=== PATIENT | male | born 1960 | race Hispanic/Latino ===

== ENCOUNTER 2019-01-05 04:54 | Emergency (ER) | payer OTHER ==
[2019-01-05] MEDS ORDERED: ACETAMINOPHEN 500 MG TAB ONE (05:57)
[2019-01-05] MEDS ORDERED: NA CHLORIDE 0.9% 1,000 ML ONE (06:06)
[2019-01-05] MEDS ORDERED: ALBUTEROL 2.5 MG/3 ML NEB SOL ONE (06:06)
[2019-01-05 06:38] LABS: Absolute Monocytes 0.6 K/uL (0.1-1.3); Absolute Neutrophil 4.1 K/uL (1.8-8.0); Basophils % 0.5 % (0-1.3); Eosinophils % 0.4 % (0-4.4); Hematocrit 47.8 % (39.6-49.0); Lymphocytes % 38.2 % (15.3-44.8); MPV 10.4 fL (7.6-11.3); Monocytes % 8.2 % (3.3-12.3); RBC Red Blood Cell Count 5.29 M/uL (4.33-5.43)
[2019-01-05 06:40] LABS: ALT/SGPT 37 U/L (12-78); AST/SGOT 26 U/L (15-37); Albumin 3.7 g/dL (3.4-5.0); Alkaline Phosphatase 119 U/L (45-117); BUN Blood Urea Nitrogen 8 mg/dL (7-18); Bicarbonate 30 mmol/L (21-32); Bilirubin Direct 0.2 mg/dL (0-0.2); Bilirubin Total 0.5 mg/dL (0.2-1.0); Glucose Level 129 mg/dL (74-106); Potassium 3.7 mmol/L (3.5-5.1); Protein, Total 7.4 g/dL (6.4-8.2); Sodium Level 141 mmol/L (136-145)
--- NOTE | 2019-01-05 07:03 | EDPHYS ---
Physician Documentation [facility] Name: Moe Rivero Age: 58 yrs Sex: Male : 1960 Arrival Date: 01/05/2019 Time: 04:59 Bed 8 Private MD: Kaya David K ED Physician Steve Bragg HPI: 01/05 05:55 This 58 yrs old Male presents to ER via Ambulatory with complaints of Cough, wa Congestion, Sore Throat, Decreased Appetite. 05:55 The patient or guardian reports cough, that is constant, difficulty breathing, flu wa symptoms, arthralgias, low-grade fever, myalgias, fever. Onset: The symptoms/episode began/occurred 5 day(s) ago. Severity of symptoms: At their worst the symptoms were moderate, in the emergency department the symptoms are actually worse. Modifying factors: The symptoms are alleviated by nothing, the symptoms are aggravated by nothing. Associated signs and symptoms: Pertinent positives: fever, nausea, rhinorrhea, sore throat, Pertinent negatives: chest pain, diarrhea, ear ache, nausea. The patient has not experienced similar symptoms in the past. saw PMD for same. on abx since 12/20/18. fever just began a couple days ago even while on abx. Historical: - Allergies: 05:17 No Known Allergies; lp1 - Home Meds: 05:17 atorvastatin 20 mg oral tab 1 tab once daily [Active]; carvedilol 12.5 mg oral tab 1 lp1 tab 2 times per day [Active]; tamsulosin 0.4 mg oral cp24 1 cap once daily [Active]; metformin 1,000 mg Oral tr24 1 tab once daily [Active]; Cefuroxime Oral 500 mg twice a day [Active]; - PMHx: 05:17 Hyperlipidemia; Hypertension; Diabetes - NIDDM; lp1 - PSHx: 05:17 Bariatric surgery; Uro-lift; lp1 - Immunization history:: Adult Immunizations up to date, Flu vaccine is not up to date. - Social history:: Smoking status: Patient/guardian denies using tobacco. - Ebola Screening: : No symptoms or risks identified at this time. - Family history:: not pertinent. - Hospitalizations: : No recent hospitalization is reported. ROS: 05:57 Eyes: Negative for injury, pain, redness, and discharge, Neck: Negative for injury, wa pain, and swelling, Abdomen/GI: Negative for abdominal pain, nausea, vomiting, diarrhea, and constipation, Back: Negative for injury and pain, : Negative for injury, bleeding, discharge, and swelling, MS/Extremity: Negative for injury and deformity, Skin: Negative for injury, rash, and discoloration, Neuro: Negative for headache, weakness, numbness, tingling, and seizure, Psych: Negative for depression, anxiety, suicide ideation, homicidal ideation, and hallucinations. 05:57 Constitutional: Positive for body aches, chills, fatigue, fever, malaise, Negative for weight loss. 05:57 ENT: Positive for rhinorrhea, sore throat, Negative for ear pain. 05:57 Respiratory: Positive for cough, with no reported sputum, Negative for sputum production, wheezing. 05:57 All other systems are negative. Exam: 05:58 Head/Face: Normocephalic, atraumatic. Eyes: Pupils equal round and reactive to light, wa extra-ocular motions intact. Lids and lashes normal. Conjunctiva and sclera are non-icteric and not injected. Cornea within normal limits. Periorbital areas with no swelling, redness, or edema. Neck: Trachea midline, no thyromegaly or masses palpated, and no cervical lymphadenopathy. Supple, full range of motion without nuchal rigidity, or vertebral point tenderness. No Meningismus. Chest/axilla: Normal chest wall appearance and motion. Nontender with no deformity. No lesions are appreciated. Cardiovascular: Regular rate and rhythm with a normal S1 and S2. No gallops, murmurs, or rubs. Normal PMI, no JVD. No pulse deficits. Abdomen/GI: Soft, non-tender, with normal bowel sounds. No distension or tympany. No guarding or rebound. No evidence of tenderness throughout. Back: No spinal tenderness. No costovertebral tenderness. Full range of motion. Skin: Warm, dry with normal turgor. Normal color with no rashes, no lesions, and no evidence of cellulitis. MS/ Extremity: Pulses equal, no cyanosis. Neurovascular intact. Full, normal range of motion. Neuro: Awake and alert, GCS 15, oriented to person, place, time, and situation. Cranial nerves II-XII grossly intact. Motor strength 5/5 in all extremities. Sensory grossly intact. Cerebellar exam normal. Normal gait. Psych: Awake, alert, with orientation to person, place and time. Behavior, mood, and affect are within normal limits. 05:58 Constitutional: The patient appears in no acute distress, alert, febrile. 05:58 ENT: External ear(s): are unremarkable, TM's: are normal, no evidence of bulging, Posterior pharynx: erythema. 05:58 Cardiovascular: Rate: normal, Rhythm: regular, Pulses: no pulse deficits are appreciated, Heart sounds: normal, Edema: is not appreciated. 05:58 Respiratory: the patient does not display signs of respiratory distress, Respirations: normal, Breath sounds: are clear throughout, Respiratory rate: normal Vital Signs: 05:14 BP 165 / 102; Pulse 88; Resp 18; Temp 101.4(O); Pulse Ox 95% on R/A; Weight 93.89 kg; lp1 Height 5 ft. 9 in. (175.26 cm); Pain 0/10; 06:23 BP 156 / 101; Pulse 87; Resp 18; Pulse Ox 100% on Nebulizer Mask; lp1 07:09 BP 143 / 92; Pulse 93; Resp 16; Pulse Ox 96% ; sv 07:19 Temp 100; sv 05:14 Body Mass Index 30.57 (93.89 kg, 175.26 cm) lp1 MDM: 05:27 Patient medically screened. wa 05:59 Differential Diagnosis: Influenza Viral Syndrome Pneumonia. ms 07:00 Data reviewed: vital signs, nurses notes, lab test result(s), radiologic studies. Test wa interpretation: by ED physician or midlevel provider: flu A positive. cbc and cmp wnl. CXR: no acute process. Response to treatment: the patient's symptoms have markedly improved after treatment. ED course: received fluid hydration. will begin tamiflu. pt with potential immune compromise due to underlying comorbidities. 01/05 05:13 Order name: Flu; Complete Time: 06:30 [facility] 01/05 05:48 Order name: CBC with Diff; Complete Time: 06:59 ms 01/05 05:48 Order name: Basic Metabolic Panel; Complete Time: 06:59 ms 01/05 05:48 Order name: Lactate; Complete Time: 06:59 ms 01/05 05:48 Order name: LFT's; Complete Time: 06:59 ms 01/05 05:48 Order name: Urine Microscopic Only; Complete Time: 07:10 ms 01/05 05:48 Order name: Cardiac monitoring; Complete Time: 06: ms 01/05 05:48 Order name: Labs collected and sent; Complete Time: 06:23 ms 01/05 05:48 Order name: Chest Pa And Lat (2 Views) XRAY ms 01/05 06:26 Order name: Urine Dipstick--Ancillary (enter results); Complete Time: 07:10 01/05 05:48 Order name: O2 Sat Monitoring; Complete Time: 06:23 ms 01/05 05:48 Order name: Urine Dipstick-Ancillary (obtain specimen); Complete Time: 06: ms 01/05 05:48 Order name: IV; Complete Time: 06: ms Administered Medications: 05:49 Drug: Acetaminophen 1000 mg Route: PO; lp1 07:19 Follow up: Temp 100; Response: No adverse reaction; Temperature is decreased sv 06:22 Drug: Albuterol 2.5 mg Route: Inhalation; lp1 06:22 Drug: NS 0.9% 1000 ml Route: IV; Rate: 1 bolus; Site: right antecubital; lp1 07:19 Follow up: Response: No adverse reaction; IV Status: Completed infusion; IV Intake: sv 1000ml 07:08 Not Given (Patient Refused): Zofran 4 mg IVP once; over 2 minutes sv Point of Care Testing: Blood Glucose: 06:14 Blood Glucose: 136 mg/dL; lp1 Ranges: Critical Glucose Levels:Adult <50 mg/dl or >400 mg/dl <40 mg/dl or >180 mg/dl Disposition: 01/05/19 07:03 Discharged to Home. Impression: Acute Viral Syndrome secondary to Influenza A infection. - Condition is Stable. - Discharge Instructions: Influenza, Adult, [id number]. - Prescriptions for Zofran 4 mg Oral Tablet - take 1 tablet by ORAL route every 12 hours As needed; 20 tablet. Tamiflu 75 mg Oral Capsule - take 1 tablet by ORAL route every 12 hours for 5 days; 10 tablet. - Medication Reconciliation Form, Thank You Letter, Antibiotic Education, Prescription Opioid Use form. - Follow up: Private Physician; When: 1 - 2 days; Reason: Recheck today's complaints. - Problem is new. - Symptoms have improved. - Notes: drink plenty of fluids. take tamiflu as prescribed. see your doctor within 48 hours for recheck of your symptoms Signatures: Dispatcher [employer] Angella Valiente, MARION RN sv Claudette Hernandez RN RN lp1 Steve Bragg MD MD wa Corrections: (The following items were deleted from the chart) 07:20 07:03 01/05/2019 07:03 Discharged to Home. Impression: Acute Viral Syndrome secondary sv to Influenza A infection. Condition is Stable. Forms are Medication Reconciliation Form, Thank You Letter, Antibiotic Education, Prescription Opioid Use. Follow up: Private Physician; When: 1 - 2 days; Reason: Recheck today's complaints. Problem is new. Symptoms have improved. wa
--- NOTE | 2019-01-05 07:03 | ER ---
Nurse's Notes [facility] Name: Moe Rivero Age: 58 yrs Sex: Male : 1960 Arrival Date: 01/05/2019 Time: 04:59 Bed 8 Private MD: Kaya David K Diagnosis: Acute Viral Syndrome secondary to Influenza A infection Presentation: 01/05 05:13 Presenting complaint: Patient states: Cough, congestion, sore throat since 12/20/18; lp1 Seen by PCP and prescribed antibiotic with no relief;. Transition of care: patient was not received from another setting of care. Onset of symptoms was January 05, 2019. Risk Assessment: Do you want to hurt yourself or someone else? Patient reports no desire to harm self or others. Initial Sepsis Screen: Does the patient meet any 2 criteria? No. Patient's initial sepsis screen is negative. Does the patient have a suspected source of infection? No. Patient's initial sepsis screen is negative. Care prior to arrival: None. 05:13 Method Of Arrival: Ambulatory lp1 05:13 Acuity: SUZANNE 4 lp1 Historical: - Allergies: 05:17 No Known Allergies; lp1 - Home Meds: 05:17 atorvastatin 20 mg oral tab 1 tab once daily [Active]; carvedilol 12.5 mg oral tab 1 lp1 tab 2 times per day [Active]; tamsulosin 0.4 mg oral cp24 1 cap once daily [Active]; metformin 1,000 mg Oral tr24 1 tab once daily [Active]; Cefuroxime Oral 500 mg twice a day [Active]; - PMHx: 05:17 Hyperlipidemia; Hypertension; Diabetes - NIDDM; lp1 - PSHx: 05:17 Bariatric surgery; Uro-lift; lp1 - Immunization history:: Adult Immunizations up to date, Flu vaccine is not up to date. - Social history:: Smoking status: Patient/guardian denies using tobacco. - Ebola Screening: : No symptoms or risks identified at this time. - Family history:: not pertinent. - Hospitalizations: : No recent hospitalization is reported. Screenin:18 Abuse screen: Denies threats or abuse. Denies injuries from another. Nutritional lp1 screening: No deficits noted. Tuberculosis screening: No symptoms or risk factors identified. Fall Risk None identified. Assessment: 05:18 General: Appears uncomfortable, Behavior is appropriate for age. Pain: Denies pain. lp1 Neuro: Level of Consciousness is awake, alert, obeys commands, Oriented to person, place, time, situation. Cardiovascular: Patient's skin is warm and dry. Respiratory: Reports cough that is Respiratory effort is even, unlabored, Respiratory pattern is regular, Breath sounds are clear bilaterally. GI: No signs and/or symptoms were reported involving the gastrointestinal system. : No signs and/or symptoms were reported regarding the genitourinary system. EENT: Reports nasal congestion pain when swallowing. Derm: Skin is pink, warm \T\ dry. Musculoskeletal: No signs and/or symptoms reported regarding the musculoskeletal system. 07:18 Reassessment: Patient appears in no apparent distress at this time. Patient and/or sv family updated on plan of care and expected duration. Pain level reassessed. Patient is alert, oriented x 3, equal unlabored respirations, skin warm/dry/pink. Vital Signs: 05:14 BP 165 / 102; Pulse 88; Resp 18; Temp 101.4(O); Pulse Ox 95% on R/A; Weight 93.89 kg; lp1 Height 5 ft. 9 in. (175.26 cm); Pain 0/10; 06:23 BP 156 / 101; Pulse 87; Resp 18; Pulse Ox 100% on Nebulizer Mask; lp1 07:09 BP 143 / 92; Pulse 93; Resp 16; Pulse Ox 96% ; sv 07:19 Temp 100; sv 05:14 Body Mass Index 30.57 (93.89 kg, 175.26 cm) lp1 ED Course: 04:59 Patient arrived in ED. es 05:00 Kaya David MD is Private Physician. es 05:02 Claudette Hernandez, MARION is Primary Nurse. lp1 05:14 Triage completed. lp1 05:15 Arm band placed on left wrist. lp1 05:18 Patient has correct armband on for positive identification. lp1 05:27 Steve Bragg MD is Attending Physician. wa 05:59 X-ray completed. Patient tolerated procedure well. sg4 06:07 Chest Pa And Lat (2 Views) XRAY In Process Unspecified. EDMS 06:16 Inserted saline lock: 20 gauge in right antecubital area, using aseptic technique. oe Blood collected. 07:18 No provider procedures requiring assistance completed. IV discontinued, intact, sv bleeding controlled, No redness/swelling at site. Pressure dressing applied. Administered Medications: 05:49 Drug: Acetaminophen 1000 mg Route: PO; lp1 07:19 Follow up: Temp 100; Response: No adverse reaction; Temperature is decreased sv 06:22 Drug: Albuterol 2.5 mg Route: Inhalation; lp1 06:22 Drug: NS 0.9% 1000 ml Route: IV; Rate: 1 bolus; Site: right antecubital; lp1 07:19 Follow up: Response: No adverse reaction; IV Status: Completed infusion; IV Intake: sv 1000ml 07:08 Not Given (Patient Refused): Zofran 4 mg IVP once; over 2 minutes sv Point of Care Testing: Blood Glucose: 06:14 Blood Glucose: 136 mg/dL; lp1 Ranges: Intake: 07:19 IV: 1000ml; Total: 1000ml. sv Outcome: 07:03 Discharge ordered by . wa 07:19 Discharged to home ambulatory, with family. sv 07:19 Condition: stable 07:19 Discharge instructions given to patient, family, Instructed on discharge instructions, follow up and referral plans. medication usage, increase fluids Demonstrated understanding of instructions, follow-up care, medications, Prescriptions given X 2. 07:20 Patient left the ED. sv Signatures: Dispatcher [employer] Angella Valiente, RN Reyna Zuleta Laura RN RN lp1 Hernando Gifford William, MD MD wa Garcia, Susana sg4
[2019-01-05 07:05] LABS: Urine Bacteria <20 /HPF (NONE SEEN); Urine Culture Reflex Order NOT NEEDED; Urine Mucus 1+ /HPF (NONE SEEN)
[2019-01-05 07:08] LABS: Urine Blood TRACE (NEG); Urine Glucose NEGATIVE (NEG); Urine Protein 1+ (NEG); Urine Specific Gravity 1.025 (1.005-1.030)
--- NOTE | 2019-01-05 10:27 | RAD REPORT ---
EXAM DESCRIPTION: Hero Lester (2 Views)01/05/2019 6:01 am CLINICAL HISTORY: Cough COMPARISON: 2015 FINDINGS: The lungs appear clear of acute infiltrate. The heart is normal size The aorta is tortuous/ectatic IMPRESSION: No acute abnormalities displayed
== END 2019-01-05 07:20 | disposition home or self-care (01) ==
LOC: ER 04:54
DX: B34.9 Viral infection, unspecified (principal); J10.1 Influenza due to other identified influenza virus with other respiratory manifestations; E11.9 Type 2 diabetes mellitus without complications; E78.5 Hyperlipidemia, unspecified; I10 Essential (primary) hypertension; Z79.84 Long term (current) use of oral hypoglycemic drugs; Z79.899 Other long term (current) drug therapy
CPT/HCPCS: 36415; 71046; 80048; 80076; 81003; 81015; 82962; 83605; 85025; 87804; 96360; 99284; J7030

== ENCOUNTER 2020-12-01 09:07 | Emergency (ER) | payer OTHER ==
--- OUTSIDE RECORDS SUMMARY | 2020-12-01 09:11 | XMS REPORT | Continuity of Care Document ---
:1960 Author Organization [facility] t Address [address] [place] [address] Care Team Providers Name Role Phone Unavailable Unavailable Unavailable Problems This patient has no known problems. Allergies, Adverse Reactions, Alerts This patient has no known allergies or adverse reactions. Medications This patient has no known medications. Procedures This patient has no known procedures. Encounters Start End Encounter Admission Attending Care Care Encounter Source Date/Time Date/Time Type Type Clinicians Facility Department ID 2020-09-10 2020-09-[address] [facility] [id number] [address] 00:00:00 00:00:00 Enoch Steiner ent Clinics Results This patient has no known results.
--- OUTSIDE RECORDS SUMMARY | 2020-12-01 09:11 | XMS REPORT ---
:1960 Author Organization [facility] Address [address] [facility] [address] [place] [address] Care Team Providers Name Role Phone Alyse Martinez Unavailable [phone] PROBLEMS Type Condition ICD9-CM [id number] Onset Condition SNOMED Code Notes Code Code Dates Status Problem Kidney stones N20.0 Active 39711503 Problem BPH (benign N40.0 Active [id number] prostatic hyperplasia) Problem Lower urinary N40.1 Active [id number] tract symptoms due to benign prostatic hyperplasia ALLERGIES No Known Allergies ENCOUNTERS from 1960 to 2020-09-13 Encounter Location Date Provider Diagnosis [place] [address] [facility] 15 Aug, 2020 Alyse Martinez [facility] Specialty/Urology [address] [place] [address], with [facility] doctor, [place] [address] encounter for Z71.89 ; Kidney stones N20.0 ; BPH (benign prostatic hyperplasia) N4 0.0 and Lower urina ry tract symptoms due to benign prostati c hyperplasia N40 .1 IMMUNIZATIONS No Information SOCIAL HISTORY Tobacco Use: Social History Observation Description Date Details (start date - stop date) Former Smoker Sex Assigned At : Social History Observation Description Sex Assigned At Unknown Tobacco Use/Smoking Question Answer Notes Are you a former smoker REASON FOR REFERRAL No Information VITAL SIGNS Height 69 in Aug, Weight 226.4 lbs Aug, Temperature 98.2 degrees Fahrenheit Aug, BMI 33.43 kg/m2 Aug, Oximetry 95 % Aug, Blood pressure systolic 158 mm Hg Aug, Blood pressure diastolic 92 mm Hg Aug, MEDICATIONS Medication SIG (Take, Route, Frequency, Start Date End Date Status Duration) Carvedilol 12.5 mg AM, 6.25 mg with food Orally as directed Active PM Vitamin D 50 MCG (1999) 1 tablet Orally Once a day Active Tamsulosin HCl 0.4 MG 1 capsule Orally Once a day Active Lisinopril 10 MG 1 tablet Orally Once a day Active Atorvastatin Calcium 20 MG 1 tablet Orally Once a day Active Lisinopril 40 MG 1 tablet Orally Once a day Active Metformin HCl 1000 MG 1 tablet with a meal Orally Active Once a day Biotin 10 MG 1 tablet Orally Once a day A ctive PROCEDURES No Information RESULTS No Results REASON FOR VISIT Stones, BPH Goals Section No Information Health Concerns No Information MEDICAL EQUIPMENT No Information MENTAL STATUS No Information FUNCTIONAL STATUS No Information ASSESSMENTS Encounter Date Diagnosis Notes Aug, Kidney stones (ICD-10 - N20.0) Aug, Establishing care with new doctorgurwinder for (ICD-10 - Z71.89) Aug, Lower urinary tract symptoms due to gustavo gn prostatic hyperplasia (ICD-10 - N40.1) Aug, BPH (benign prostatic hyperplasia) (ICD- 10 - N40.0) PLAN OF TREATMENT Treatment Notes Assessment Notes Clinical Notes Lower urinary tract symptoms due to Cont inue daily flomaxPSA f/tKUB, check benign prostatic hyperplasia stone statu s, no c/o flank painUrine reflexROV 6 mo., FR/ PVR Treatment Notes Test Name Order Date URINALYSIS AUTO W/O SCOPE ([id number]) 2020-09-13 UMIC with Reflex to Urine Culture 2020-09-13 PVR 2020-09-13 PSA Total (Reflex To Free) 2020-09-13 Abdomen 1 View (KUB) 2020-09-13 Next Appt Details 6 Months Reason:FR/PVR Provider Name:Alyse Martinez, 09:00:00 AM, [address] [place] [address], [place], [address], Follow Up:6 MonthsFR/PVR Insurance Providers Payer Name Payer Payer Insured Name Patient Coverage Covera ge End Address Phone Relationship to Start Date [place] e Insured [employer] [phone] Maverick Rivero self [id number] [birth year] ago [facility] [id number]
[2020-12-01] MEDS ORDERED: LIDOCAINE 1% W/EPI 1:100,000 MDV 50 ML VIAL ONE (09:40)
[2020-12-01 09:46] LABS: Absolute Lymphocytes (CBC) 5.9 K/uL (0.7-4.9); Basophils % 0.4 % (0-1.3); Hematocrit 42.1 % (39.6-49.0); MPV 9.5 fL (7.6-11.3); RBC Red Blood Cell Count 4.61 M/uL (4.33-5.43)
[2020-12-01] MEDS ORDERED: CLINDAMYCIN 900MG/D5W 900 MG/50 ML IVPB IV ONE (09:49)
[2020-12-01 09:56] LABS: BUN Blood Urea Nitrogen 17 mg/dL (7-18); Bicarbonate 30 mmol/L (21-32); Glucose Level 142 mg/dL (74-106); Potassium 3.6 mmol/L (3.5-5.1); Sodium Level 141 mmol/L (136-145)
[2020-12-01 10:02] LABS: Blood Morphology Comment NOT SEEN (NOT SEEN); Platelet Estimate ADEQ; White Blood Cell Scan OK (OK)
--- NOTE | 2020-12-01 10:07 | EDPHYS ---
Physician Documentation [facility] Name: Moe Rivero Age: 60 yrs Sex: Male : 1960 Arrival Date: 12/01/2020 Time: 09:09 Bed 4 Private MD: ED Physician Richie Dorado HPI: 12/01 09:26 This 60 yrs old Male presents to ER via Ambulatory with complaints of Facial cp Swelling. 09:26 the patient presents with a swollen area of the forehead. cp 09:26 Description: swollen. Onset: The symptoms/episode began/occurred 2 day(s) ago. cp Associated signs and symptoms: Pertinent negatives: discharge, drainage, fever. Historical: - Allergies: 09:15 No Known Drug Allergies; tw2 - Home Meds: 09:15 atorvastatin 20 mg Oral tab 1 tab once daily [Active]; carvedilol 12.5 mg Oral tab 1 tw2 tab 2 times per day [Active]; metformin 1,000 mg Oral tr24 1 tab once daily [Active]; tamsulosin 0.4 mg Oral cp24 1 cap once daily [Active]; - PMHx: 09:15 Hypertension; Hyperlipidemia; Diabetes - NIDDM; tw2 - PSHx: 09:15 Bariatric surgery; Uro-lift; tw2 - Immunization history:: Adult Immunizations unknown, Last tetanus immunization: unknown. - Social history:: Smoking status: Patient/guardian denies using alcohol, street drugs. ROS: 09:30 Skin: Positive for swelling, of the forehead. cp 09:30 Constitutional: Negative for body aches, chills, fever, poor PO intake. cp 09:30 All other systems are negative. Exam: 09:35 Constitutional: The patient appears in no acute distress, alert, awake, non-toxic, well cp developed, well nourished. 09:35 Head/face: Noted is erythema, that is mild, of the forehead, swelling, that is mild, of the foreheadextending supraorbital bilaterally, tenderness, that is mild. 09:35 Eyes: Extraocular movements: intact throughout. 09:35 Chest/axilla: Inspection: normal. 09:35 Cardiovascular: Rate: normal, Rhythm: regular. 09:35 Respiratory: the patient does not display signs of respiratory distress, Respirations: normal, no use of accessory muscles, no retractions, labored breathing, is not present. Vital Signs: 09:12 BP 156 / 97; Pulse 61; Resp 18; Temp 97.6(TE); Pulse Ox 98% on R/A; Weight 99.79 kg tw2 (R); Height 5 ft. 8 in. (172.72 cm); Pain 5/10; 09:43 BP 145 / 91; Pulse 60; Resp 17; Pulse Ox 98% ; jl7 09:12 Body Mass Index 33.45 (99.79 kg, 172.72 cm) tw2 Procedures: 09:40 I \T\ D: Incision and drainage was performed for an abscess of the forehead Prepped with cp Betadine, Anesthetized with 2 ml's 1% Lidocaine w/ Epi. Incised with #11 blade. Drained small amount purulent fluid. Dressing: sterile 4x4 gauze, the patient tolerated the procedure well. MDM: 09:19 Patient medically screened. cp 10:07 Data reviewed: vital signs, nurses notes, lab test result(s), and as a result, I will cp discharge patient. 10:07 Differential diagnosis: abscess, allergic reaction, cellulitis. Counseling: I had a cp detailed discussion with the patient and/or guardian regarding: the historical points, exam findings, and any diagnostic results supporting the discharge/admit diagnosis, lab results, to return to the emergency department if symptoms worsen or persist or if there are any questions or concerns that arise at home. Response to treatment: the patient's symptoms have mildly improved after treatment, and as a result, I will discharge patient. 12/01 09:25 Order name: CBC with Diff 12/01 09:25 Order name: BMP 12/01 09:25 Order name: Wound Culture 12/01 09:25 Order name: CBC with Automated Diff; Complete Time: 10:04 EDMS 12/01 10:05 Interpretation: Normal except: WBC 12.8; LYM% 46.0; LYMA 5.9. 12/01 09:25 Order name: Basic Metabolic Panel; Complete Time: 10:04 EDMS 12/01 10:06 Interpretation: Normal except: CL 108; GLUC 142; CA 8.4. 12/01 09:25 Order name: IV; Complete Time: 09:38 cp 12/01 09:25 Order name: I\T\D Setup; Complete Time: 09:32 12/01 10:02 Order name: CBC Smear Scan; Complete Time: 10:04 EDMS Administered Medications: 09:30 Drug: Lidocaine-Epinephrine -1%: (1:100,000) 5 ml {Note: administered by марина Morejon.} Volume: 20 ml; Route: Infiltration; 09:38 Drug: Clindamycin 900 mg Route: IVPB; Infused Over: 30 mins; Site: left hand; jd3 Disposition: 10:20 Chart complete. 12/02 06:52 Co-signature as Attending Physician, Richie Dorado MD I agree with the assessment and [facility] of care. Disposition: 12/01/20 10:07 Discharged to Home. Impression: Cellulitis of face, Cutaneous abscess of face. - Condition is Stable. - Discharge Instructions: Skin Abscess, Cellulitis, Adult, Incision and Drainage. - Prescriptions for Clindamycin HCl 300 mg Oral Capsule - take 1 capsule by ORAL route every 6 hours for 10 days; 40 capsule. Bactrim DS 800- 160 mg Oral Tablet - take 1 tablet by ORAL route every 12 hours for 10 days; 20 tablet. - Medication Reconciliation Form, Thank You Letter, Antibiotic Education, Prescription Opioid Use form. - Follow up: Private Physician; When: 1 - 2 days; Reason: Recheck today's complaints. - Problem is new. - Symptoms have improved. Signatures: Dispatcher [employer] [facility] Richie Dorado MD MD cha Page, Corey, PA PA Tara Polo RN RN tw2 Missy Chang RN RN jl7 Norris Anderson RN RN jd3 Corrections: (The following items were deleted from the chart) 12/01 09:53 09:25 Wound Culture ordered. EDSD EDMS 10:05 10:04 Normal except: WBC 12.8; LYM% 46.0. cp cp 10:06 10:05 Normal except: CL 108; GLUC 142. cp cp 10:14 10:07 12/01/2020 10:07 Discharged to Home. Impression: Cellulitis of face; Cutaneous jl7 abscess of face. Condition is Stable. Forms are Medication Reconciliation Form, Thank You Letter, Antibiotic Education, Prescription Opioid Use. Follow up: Private Physician; When: 1 - 2 days; Reason: Recheck today's complaints. Problem is new. Symptoms have improved. cp
--- NOTE | 2020-12-01 10:07 | ER ---
Nurse's Notes [facility] Name: Moe Rivero Age: 60 yrs Sex: Male : 1960 Arrival Date: 12/01/2020 Time: 09:09 Bed 4 Private MD: Diagnosis: Cellulitis of face;Cutaneous abscess of face Presentation: 12/01 09:12 Chief complaint: Patient states: i have like a boil on my forehead and for a couple of tw2 days i have been feeling pressure. this morning i woke up and my face is swollen and feel like my eyes are swollen shut. Coronavirus screen: At this time, the client does not indicate any symptoms associated with coronavirus-19. Ebola Screen: Patient denies travel to an Ebola-affected area in the 21 days before illness onset. Initial Sepsis Screen: Does the patient meet any 2 criteria? No. Patient's initial sepsis screen is negative. Does the patient have a suspected source of infection? No. Patient's initial sepsis screen is negative. Risk Assessment: Do you want to hurt yourself or someone else? Patient reports no desire to harm self or others. Onset of symptoms was December 01, 2020. 09:12 Method Of Arrival: Ambulatory tw2 09:12 Acuity: SUZANNE 3 tw2 Triage Assessment: 09:15 General: Appears in no apparent distress. well groomed, Behavior is calm, cooperative, tw2 appropriate for age. Pain: Complains of pain in forehead. Derm: swelling noted to forehead and b/l eye area Abscess located on forehead is dime sized, is red, is raised. Historical: - Allergies: :15 No Known Drug Allergies; tw2 - Home Meds: 09:15 atorvastatin 20 mg Oral tab 1 tab once daily [Active]; carvedilol 12.5 mg Oral tab 1 tw2 tab 2 times per day [Active]; metformin 1,000 mg Oral tr24 1 tab once daily [Active]; tamsulosin 0.4 mg Oral cp24 1 cap once daily [Active]; - PMHx: 09:15 Hypertension; Hyperlipidemia; Diabetes - NIDDM; tw2 - PSHx: 09:15 Bariatric surgery; Uro-lift; tw2 - Immunization history:: Adult Immunizations unknown, Last tetanus immunization: unknown. - Social history:: Smoking status: Patient/guardian denies using alcohol, street drugs. Screenin:20 Abuse screen: Denies threats or abuse. Denies injuries from another. Nutritional jl7 screening: No deficits noted. Tuberculosis screening: No symptoms or risk factors identified. Fall Risk IV access (20 points). Assessment: 09:20 General: Appears in no apparent distress. uncomfortable, Behavior is calm, cooperative, jl7 appropriate for age. Pain: Complains of pain in forehead Pain currently is 5 out of 10 on a pain scale. Neuro: Level of Consciousness is awake, alert, obeys commands, Oriented to person, place, time, situation. Cardiovascular: Patient's skin is warm and dry. Respiratory: Airway is patent Respiratory effort is even, unlabored, Respiratory pattern is regular, symmetrical. Derm: Skin is pink, warm \T\ dry. mild swelling noted to forehead around abscess, to medial aspect of bilateral eyes, and to bridge of nose Abscess located on forehead is quarter sized, has no drainage, is red, is raised. Vital Signs: 09:12 BP 156 / 97; Pulse 61; Resp 18; Temp 97.6(TE); Pulse Ox 98% on R/A; Weight 99.79 kg tw2 (R); Height 5 ft. 8 in. (172.72 cm); Pain 5/10; 09:43 BP 145 / 91; Pulse 60; Resp 17; Pulse Ox 98% ; jl7 09:12 Body Mass Index 33.45 (99.79 kg, 172.72 cm) tw2 ED Course: 09:09 Patient arrived in ED. ag3 09:14 Triage completed. tw2 09:16 Arm band placed on. tw2 09:17 Richie Dugan PA is PHCP. cp 09:17 Richie Dorado MD is Attending Physician. cp 09:17 Missy Chang RN is Primary Nurse. jl7 09:20 Patient has correct armband on for positive identification. Bed in low position. Call jl7 light in reach. Side rails up X 1. Pulse ox on. NIBP on. 09:35 Initial lab(s) drawn, by me, sent to lab. Inserted saline lock: 20 gauge in left hand, jl7 using aseptic technique. Blood collected. 10:12 Assist provider with I \T\ D: of an abscess on forehead Set up I\T\D tray. Performed by jenifer WATSON Dressing with Neosporin and bandaid Patient tolerated well. IV discontinued, intact, bleeding controlled, No redness/swelling at site. Pressure dressing applied. Administered Medications: 09:30 Drug: Lidocaine-Epinephrine -1%: (1:100,000) 5 ml {Note: administered by марина Morejon.} Volume: 20 ml; Route: Infiltration; 09:38 Drug: Clindamycin 900 mg Route: IVPB; Infused Over: 30 mins; Site: left hand; jd3 Outcome: 10:07 Discharge ordered by . cp 10:12 Discharged to home ambulatory. марина 10:12 Condition: stable 10:12 Discharge instructions given to patient, Instructed on discharge instructions, follow up and referral plans. medication usage, Demonstrated understanding of instructions, follow-up care, medications, Prescriptions given X 2. 10:14 Patient left the ED. марина Signatures: Richie Dugan PA PA cp Wise, Tara RN RN tw2 Missy Chang RN RN [id number] Norris Anderson RN RN jd3 Josie Clark ag3 Corrections: (The following items were deleted from the chart) 19:55 09:20 Derm: Skin is pink, warm \T\ dry. Abscess located on forehead is quarter sized, has марина no drainage, is red, is raised, jl7
== END 2020-12-01 10:14 | disposition home or self-care (01) ==
LOC: ER 09:07
PROC: 0J910ZZ Drainage of Face Subcutaneous Tissue and Fascia, Open Approach (ICD-10-PCS; principal; 2020-12-01)
DX: L03.211 Cellulitis of face (principal); L02.01 Cutaneous abscess of face; I10 Essential (primary) hypertension; E78.5 Hyperlipidemia, unspecified; E11.9 Type 2 diabetes mellitus without complications
CPT/HCPCS: 36415; 80048; 85025; 96374; 99284

== ENCOUNTER 2020-12-01 15:48 | Emergency (ER) | payer OTHER ==
--- OUTSIDE RECORDS SUMMARY | 2020-12-01 15:49 | XMS REPORT | Continuity of Care Document ---
:1960 Author Organization [facility] t Address [address] [place] [address] Care Team Providers Name Role Phone Unavailable [...] Clinicians Facility Department ID 2020-09-10 2020-09-10 Outpatient [facility] [id number] [facility] [address] 00:00:00 00:00:00 [facility] Results This patient has no known results.
[2020-12-01] MEDS ORDERED: FAMOTIDINE 20 MG/2 ML VIAL IV ONE (16:44)
[2020-12-01] MEDS ORDERED: DIPHENHYDRAMINE 50 MG/ML VIAL ONE (16:44)
[2020-12-01] MEDS ORDERED: NA CHLORIDE 0.9% 1,000 ML ONE (16:45)
[2020-12-01] MEDS ORDERED: VANCOMYCIN/NS 1 gm 1 GM/250 ML BAG IVPB ONE (17:00)
[2020-12-01 17:14] LABS: Protime INR 0.99
[2020-12-01 17:15] LABS: Absolute Lymphocytes (CBC) 6.8 K/uL (0.7-4.9); Basophils % 0.4 % (0-1.3); Hematocrit 43.7 % (39.6-49.0); Lymphocytes % 43.9 % (15.3-44.8); MPV 9.9 fL (7.6-11.3); RBC Red Blood Cell Count 4.74 M/uL (4.33-5.43)
--- NOTE | 2020-12-01 17:31 | RAD REPORT ---
EXAM DESCRIPTION: RAD - Chest Single View - 12/01/2020 4:52 pm CLINICAL HISTORY: facial swelling COMPARISON: Two-view chest November 2019 TECHNIQUE: AP portable chest image was obtained 12/01/2020 4:52 pm . FINDINGS: Lung volumes are low. No peripheral mass or consolidation. Significant failure or volume o verload. Low lung volume accentuates the mediastinum. Heart size within normal limits for portable lo w lung volume exam. No measurable pleural effusion and no pneumothorax. No acute bony abnormality see n. No acute aortic findings suspected. IMPRESSION: No acute cardiopulmonary process.
[2020-12-01 17:32] LABS: ALT/SGPT 29 U/L (12-78); AST/SGOT 20 U/L (15-37); Alkaline Phosphatase 105 U/L (45-117); BUN Blood Urea Nitrogen 18 mg/dL (7-18); Bicarbonate 32 mmol/L (21-32); Bilirubin Direct 0.2 mg/dL (0-0.2); Bilirubin Total 0.8 mg/dL (0.2-1.0); Glucose Level 74 mg/dL (74-106); Potassium 3.8 mmol/L (3.5-5.1); Protein, Total 7.9 g/dL (6.4-8.2); Sodium Level 143 mmol/L (136-145)
--- NOTE | 2020-12-01 17:46 | RAD REPORT ---
EXAM DESCRIPTION: CT - Facial Bones W Con Mpr - 12/01/2020 5:24 pm CLINICAL HISTORY: Facial swelling, history of diabetes COMPARISON: None TECHNIQUE: Axial 2 millimeter thick images of the facial bones and soft tissues were obtained with s agittal and coronal reconstruction imaging. All CT scans are performed using dose optimization technique as appropriate and may include automated exposure control or mA/KV adjustment according to patient size. FINDINGS: Patient has prominent soft tissue swelling in the frontal scalp soft tissues extending inf eriorly into the nasal and periorbital soft tissues. No air or foreign body in the soft tissues. No a bscess or drainable fluid collections seen. No globe abnormality. No post septal orbital abnormality seen. Mastoid air cells are clear. No air-fluid level in the paranasal sinuses. Right deviation of the mid and posterior nasal septum present. No acute bone finding. The parotid, submandibular and thyroid gla nd tissue show no suspicious findings. Patient has multiple sub centimeter nonspecific bilateral cerv ical lymph nodes. No pharyngeal mucosal mass or asymmetry. No soft palate, epiglottis or vocal cords suspicious finding. IMPRESSION: Prominent swelling of the bilateral periorbital, perinasal and frontal scalp soft tissue s. No air, foreign body or abscess.
[2020-12-01 18:02] LABS: White Blood Cell Scan OK (OK)
[2020-12-01 18:03] LABS: Blood Morphology Comment NOT SEEN (NOT SEEN); Platelet Estimate ADEQ
--- NOTE | 2020-12-01 18:47 | EDPHYS ---
Physician Documentation [facility] Name: Moe Rivero Age: 60 yrs Sex: Male : 1960 Arrival Date: 12/01/2020 Time: 15:58 Bed 8 Private MD: ED Physician Richie Dorado HPI: 12/01 16:30 This 60 yrs old Male presents to ER via Ambulatory with complaints of Facial cp Swelling. 16:30 the patient presents with a swollen area of the face. cp 16:30 Description: swollen. Onset: The symptoms/episode began/occurred yesterday, and became cp worse today. Possible cause(s): cellulitis. 16:30 Associated signs and symptoms: Pertinent positives: erythema, swelling, Pertinent cp negatives: fever, nausea, shortness of breath, vomiting. 16:30 Severity of symptoms: in the emergency department the symptoms are actually worse, cp moderately. Historical: - Allergies: 16:07 No Known Drug Allergies; tw2 - Home Meds: 16:07 atorvastatin 20 mg Oral tab 1 tab once daily [Active]; carvedilol 12.5 mg Oral tab 1 tw2 tab 2 times per day [Active]; metformin 1,000 mg Oral tr24 1 tab once daily [Active]; tamsulosin 0.4 mg Oral cp24 1 cap once daily [Active]; - PMHx: 16:07 Diabetes - NIDDM; Hyperlipidemia; Hypertension; tw2 - PSHx: 16:07 Bariatric surgery; Uro-lift; tw2 - Immunization history:: Adult Immunizations. - Social history:: Smoking status: . ROS: 16:35 Constitutional: Negative for body aches, chills, fever, poor PO intake. cp 16:35 Eyes: Negative for injury, pain, redness, and discharge. cp 16:35 Cardiovascular: Negative for chest pain, palpitations. 16:35 Respiratory: Negative for cough, shortness of breath, wheezing. 16:35 Abdomen/GI: Negative for abdominal pain, nausea, vomiting, and diarrhea. 16:35 Skin: Positive for cellulitis, swelling, of the forehead and face. cp 16:35 Neuro: Negative for altered mental status, headache, weakness. 16:35 All other systems are negative. cp Exam: 16:38 ECG was reviewed by the Attending Physician. cp 16:40 Constitutional: The patient appears in no acute distress, alert, awake, cp non-diaphoretic, non-toxic, well developed, well nourished. 16:40 Head/face: Noted is erythema, that is mild, of the forehead, right eye and left eye, cp swelling, that is moderate, of the forehead, right eye and left eye. 16:40 Eyes: Pupils: equal, round, and reactive to light and accomodation, Extraocular movements: intact throughout, Conjunctiva: normal, no exudate, no injection, Sclera: no appreciated abnormality. 16:40 ENT: External ear(s): are unremarkable, Ear canal(s): are normal, clear, TM's: dullness, bilaterally, Nose: is normal, Mouth: Lips: moist, Oral mucosa: pink and intact, moist, Posterior pharynx: Airway: no evidence of obstruction, patent, swelling, is not appreciated, erythema, is not appreciated. 16:40 Neck: ROM/movement: is normal, is supple, without pain, no range of motions limitations, no nuchal rigidity. 16:40 Chest/axilla: Inspection: normal, Palpation: is normal, no crepitus, no tenderness. 16:40 Cardiovascular: Rate: normal, Rhythm: regular. 16:40 Respiratory: the patient does not display signs of respiratory distress, Respirations: normal, no use of accessory muscles, no retractions, labored breathing, is not present, Breath sounds: are clear throughout, no decreased breath sounds. 16:40 Abdomen/GI: Inspection: abdomen appears normal, Palpation: abdomen is soft and non-tender, in all quadrants. 16:40 Neuro: Orientation: to person, place \T\ time. Mentation: is normal, Motor: moves all fours, strength is normal. Vital Signs: 16:04 BP 157 / 97; Pulse 71; Resp 18; Temp 97.8(TE); Pulse Ox 97% on R/A; Weight 99.79 kg; tw2 Height 5 ft. 8 in. (172.72 cm); Pain 4/10; 17:11 BP 169 / 102; Pulse 74; Resp 17 S; Pulse Ox 96% on R/A; jd3 20:30 BP 159 / 90; Pulse 80; Resp 18; Pulse Ox 99% ; ea 21:15 BP 165 / 89; Pulse 78; Resp 18; Temp 97.8; Pulse Ox 97% ; ea 16:04 Body Mass Index 33.45 (99.79 kg, 172.72 cm) tw2 MDM: 16:17 Patient medically screened. 16:52 Physician consultation: Aristeo Yuan DO was contacted at 16:52, regarding admission, cp to the medical/surgical unit. patient's condition, and will see patient in ED, shortly. 17:45 Physician consultation: Aristeo Yuan DO was contacted at 17:45, regarding admission, cp patient's condition, after a discussion of the case, a recommendation for transfer for higher level of care is made, due to ENT services not being available. 18:10 Data reviewed: vital signs, nurses notes, lab test result(s), radiologic studies, CT cp scan. 18:10 Counseling: I had a detailed discussion with the patient and/or guardian regarding: the cp historical points, exam findings, and any diagnostic results supporting the discharge/admit diagnosis, lab results, radiology results, the need to transfer to another facility, [facility] does not immediately have the required specialist. 18:36 Physician consultation: was contacted at 18:36, regarding regarding transfer, to [facility]. patient's condition, DR Mackenzie, hospitalist, will be accepting physician. 12/01 16:22 Order name: Basic Metabolic Panel; Complete Time: 17:33 cp 12/01 17:34 Interpretation: Normal except: CL 110. 12/01 16:22 Order name: CBC with Diff; Complete Time: 18:07 cp 12/01 17:34 Interpretation: Abnormal: WBC 15.4; LYMA 6.8. cp 12/01 16:22 Order name: LFT's; Complete Time: 17:33 cp 12/01 17:34 Interpretation: Normal except: GLOB 3.9; A/G 1.0. cp 12/01 16:22 Order name: PT-INR; Complete Time: 17:33 cp 12/01 16:31 Order name: Blood Culture Adult (2) cp 12/01 16:31 Order name: Lactate; Complete Time: 17:33 cp 12/01 16:22 Order name: XRAY Chest (1 view); Complete Time: 17:33 cp 12/01 16:31 Order name: Procalcitonin; Complete Time: 18:07 cp 12/01 18:07 Interpretation: Abnormal: Procalcitonin 0.38. cp 12/01 16:51 Order name: CT Facial Bones W/ Con \T\ Mpr; Complete Time: 17:48 cp 12/01 17:03 Order name: CRP; Complete Time: 17:33 cp 12/01 17:34 Interpretation: Abnormal: C-REACTIVE PROT 3.61. cp 12/01 18:03 Order name: CBC Smear Scan; Complete Time: 18:07 EDMS 12/01 21:07 Order name: SARS-COV-2 RT PCR; Complete Time: 21:11 EDMS 12/01 21:11 Interpretation: Results reviewed. cp 12/01 16:22 Order name: EKG; Complete Time: 16:23 cp 12/01 16:22 Order name: Cardiac monitoring; Complete Time: 16:23 cp 12/01 16:22 Order name: EKG - Nurse/Tech; Complete Time: 16:36 cp 12/01 16:22 Order name: IV Saline Lock; Complete Time: 17:08 cp 12/01 16:22 Order name: Labs collected and sent; Complete Time: 17:08 cp 12/01 16:22 Order name: O2 Per Protocol; Complete Time: 16:23 cp 12/01 16:22 Order name: O2 Sat Monitoring; Complete Time: 16:23 cp EC:38 Rate is 62 beats/min. Rhythm is regular. IN interval is prolonged at 208 msec. QRS cp interval is normal. QT interval is normal. T waves are Inverted in leads III, aVR. Interpreted by me. Reviewed by me. Administered Medications: 17:08 Drug: NS 0.9% 1000 ml Route: IV; Rate: 1000 ml/hr; Site: right antecubital; jd3 18:15 Follow up: Response: No adverse reaction; IV Status: Completed infusion; IV Intake: jl7 1000ml 17:10 Drug: Benadryl 50 mg Route: IVP; Site: right antecubital; jd3 17:30 Follow up: Response: No adverse reaction jl7 17:10 Drug: Pepcid 20 mg Route: IVP; Site: right antecubital; jd3 17:30 Follow up: Response: No adverse reaction jl7 17:33 Drug: vancoMYCIN 1 grams Route: IVPB; Infused Over: 2 hrs; Site: right antecubital; jd3 19:48 Follow up: Response: No adverse reaction; IV Status: Completed infusion; IV Intake: ea 250ml 19:47 Drug: SOLU-Medrol 125 mg Route: IVP; Site: right antecubital; ea 20:02 Follow up: Response: No adverse reaction ea 20:14 Drug: Unasyn 2 grams Route: IVPB; Infused Over: 30 mins; Site: right antecubital; ea 21:18 Follow up: Response: No adverse reaction; IV Status: Completed infusion ea Disposition: 19:15 Chart complete. cp 12/02 06:56 Co-signature as Attending Physician, Richie Dorado MD I agree with the assessment and tommie plan of care. Disposition: 12/01/20 18:46 Transfer ordered to [facility]. Diagnosis is Cellulitis and acute lymphangitis of face. - Reason for transfer: Higher level of care. - Accepting physician is DR Mackenzie. - Condition is Stable. - Problem is new. - Symptoms have improved. Signatures: Dispatcher [employer] [facility] Richie Dorado MD MD cha Attema, Lee, LEAK INSPECTOR-C LEAK INSPECTOR-Cla1 Richie Dugan PA PA cp Tara Polo RN RN tw2 Dinah Vicente RN Norris Gray ea, RN RN jd3 Missy Chang RN jl7 Corrections: (The following items were deleted from the chart) 12/01 17:34 17:33 Abnormal: WBC 15.4. cp cp 20:17 19:24 CORONAVIRUS+MR.LAB.BRZ ordered. [facility] 21:19 18:46 12/01/2020 18:46 Transfer ordered to [facility]. ea Diagnosis is Cellulitis and acute lymphangitis of face. Reason for transfer: Higher level of care. Accepting physician is DR Mackenzie. Condition is Stable. Problem is new. Symptoms have improved. cp
--- NOTE | 2020-12-01 18:47 | ER ---
Nurse's Notes [facility] Name: Moe Rivero Age: 60 yrs Sex: Male : 1960 Arrival Date: 12/01/2020 Time: 15:58 Bed 8 Private MD: Diagnosis: Cellulitis and acute lymphangitis of face Presentation: 12/01 16:04 Chief complaint: Patient states: my face swelled some more and it worried my , and tw2 my eyes are more swollen, i just took the antibiotics at [facility], its swollen around my eyes, my pain is tolerable now but just the swelling in my face and eyes. Coronavirus screen: At this time, the client does not indicate any symptoms associated with coronavirus-19. Ebola Screen: Patient denies travel to an Ebola-affected area in the 21 days before illness onset. Initial Sepsis Screen: Does the patient meet any 2 criteria? No. Patient's initial sepsis screen is negative. Does the patient have a suspected source of infection? No. Patient's initial sepsis screen is negative. Risk Assessment: Do you want to hurt yourself or someone else? Patient reports no desire to harm self or others. Onset of symptoms was December 01, 2020. 16:04 Method Of Arrival: Ambulatory tw2 16:04 Acuity: SUZANNE 3 tw2 Triage Assessment: 16:07 General: Appears in no apparent distress. Behavior is calm, cooperative, appropriate tw2 for age. General: Reports increased facial swelling, pt denies swelling of tongue. Pain: Complains of pain in forehead. Respiratory: Airway is patent Respiratory effort is even, unlabored, Respiratory pattern is regular, symmetrical. Historical: - Allergies: 16:07 No Known Drug Allergies; tw2 - Home Meds: 16:07 atorvastatin 20 mg Oral tab 1 tab once daily [Active]; carvedilol 12.5 mg Oral tab 1 tw2 tab 2 times per day [Active]; metformin 1,000 mg Oral tr24 1 tab once daily [Active]; tamsulosin 0.4 mg Oral cp24 1 cap once daily [Active]; - PMHx: 16:07 Diabetes - NIDDM; Hyperlipidemia; Hypertension; tw2 - PSHx: 16:07 Bariatric surgery; Uro-lift; tw2 - Immunization history:: Adult Immunizations. - Social history:: Smoking status: . Screenin:11 Abuse screen: Denies threats or abuse. Nutritional screening: No deficits noted. jd3 Tuberculosis screening: No symptoms or risk factors identified. Fall Risk Ambulatory Aid- None/Bed Rest/Nurse Assist (0 pts). Gait- Normal/Bed Rest/Wheelchair (0 pts) Mental Status- Oriented to own ability (0 pts). Total Kwok Fall Scale indicates No Risk (0-24 pts). Assessment: 16:15 General: Appears in no apparent distress. uncomfortable, Behavior is calm, cooperative, jl7 appropriate for age. Pain: Complains of pain in face Pain currently is 4 out of 10 on a pain scale. Neuro: Level of Consciousness is awake, alert, obeys commands, Oriented to person, place, time, situation. Cardiovascular: Patient's skin is warm and dry. Respiratory: Airway is patent Respiratory effort is even, unlabored, Respiratory pattern is regular, symmetrical. Derm: Skin is pink, warm \T\ dry. Musculoskeletal: Swelling present in face. 16:15 Reassessment: Moderate swelling noted to forehead, periorbital, bilateral cheeks and jl7 nose. 17:15 Reassessment: Patient appears in no apparent distress at this time. No changes from jl7 previously documented assessment. Patient and/or family updated on plan of care and expected duration. Pain level reassessed. Patient is alert, oriented x 3, equal unlabored respirations, skin warm/dry/pink. 18:15 Reassessment: Patient appears in no apparent distress at this time. No changes from jl7 previously documented assessment. Patient and/or family updated on plan of care and expected duration. Pain level reassessed. Patient is alert, oriented x 3, equal unlabored respirations, skin warm/dry/pink. 20:00 General: Appears uncomfortable, Behavior is calm, cooperative, appropriate for age. ea Neuro: Level of Consciousness is awake, alert, obeys commands, Oriented to person, place, time, situation. Cardiovascular: Patient's skin is warm and dry. Respiratory: Airway is patent Respiratory effort is even, unlabored, Respiratory pattern is regular, symmetrical. Derm: swelling to face. 20:32 Reassessment: report given to MARION Hawthorne. COVID swab obtained per Giovana 45 mins until sg results. 21:00 Reassessment: Patient and/or family updated on plan of care and expected duration. Pain ea level reassessed. Patient is alert, oriented x 3, equal unlabored respirations, skin warm/dry/pink. Awaiting on EMS for transfer. 21:17 Reassessment: Patient and/or family updated on plan of care and expected duration. Pain ea level reassessed. Patient is alert, oriented x 3, equal unlabored respirations, skin warm/dry/pink. Pt transferred to [facility] at facility for transfer, pt left ED via stretcher per EMS, pt tolerating well. Vital Signs: 16:04 BP 157 / 97; Pulse 71; Resp 18; Temp 97.8(TE); Pulse Ox 97% on R/A; Weight 99.79 kg; tw2 Height 5 ft. 8 in. (172.72 cm); Pain 4/10; 17:11 BP 169 / 102; Pulse 74; Resp 17 S; Pulse Ox 96% on R/A; jd3 20:30 BP 159 / 90; Pulse 80; Resp 18; Pulse Ox 99% ; ea 21:15 BP 165 / 89; Pulse 78; Resp 18; Temp 97.8; Pulse Ox 97% ; ea 16:04 Body Mass Index 33.45 (99.79 kg, 172.72 cm) tw2 ED Course: 15:58 Patient arrived in ED. ag3 16:06 Triage completed. tw2 16:08 Arm band placed on. tw2 16:09 Missy Chang, RN is Primary Nurse. марина 16:09 Richie Dugan PA is PHCP. cp 16:09 Richie Dorado MD is Attending Physician. cp 16:48 Inserted saline lock: 20 gauge in right antecubital area, using aseptic technique. jd3 Blood collected. 16:48 Initial lab(s) drawn, by ED staff, sent to lab. EKG done, by ED staff, reviewed by марина WATSON. 16:52 XRAY Chest (1 view) In Process Unspecified. EDMS 16:55 Missed attempt(s): 20 gauge in right forearm. Bleeding controlled, band aid applied, jd3 catheter tip intact. 17:11 Patient has correct armband on for positive identification. Bed in low position. Call jd3 light in reach. Side rails up X 1. Adult w/ patient. teletypesetter monitor on. Pulse ox on. NIBP on. 17:24 CT Facial Bones W/ Con \T\ Mpr In Process Unspecified. EDMS 18:24 initiated transfer to [facility]. bd 19:19 TURNER Mccrary gave admin approval. The pt is going to [facility], [address] tt[address] [id number]. Nurse to call report to . Face sheet faxed to per TURNER's request. 19:33 Primary Nurse role handed off by Missy Chang, MARION sg 19:47 Dinah Vicente, MARION is Primary Nurse. ea 20:01 No provider procedures requiring assistance completed. Patient transferred, IV remains ea in place. Administered Medications: 17:08 Drug: NS 0.9% 1000 ml Route: IV; Rate: 1000 ml/hr; Site: right antecubital; jd3 18:15 Follow up: Response: No adverse reaction; IV Status: Completed infusion; IV Intake: jl7 1000ml 17:10 Drug: Benadryl 50 mg Route: IVP; Site: right antecubital; jd3 17:30 Follow up: Response: No adverse reaction jl7 17:10 Drug: Pepcid 20 mg Route: IVP; Site: right antecubital; jd3 17:30 Follow up: Response: No adverse reaction jl7 17:33 Drug: vancoMYCIN 1 grams Route: IVPB; Infused Over: 2 hrs; Site: right antecubital; jd3 19:48 Follow up: Response: No adverse reaction; IV Status: Completed infusion; IV Intake: ea 250ml 19:47 Drug: SOLU-Medrol 125 mg Route: IVP; Site: right antecubital; ea 20:02 Follow up: Response: No adverse reaction ea 20:14 Drug: Unasyn 2 grams Route: IVPB; Infused Over: 30 mins; Site: right antecubital; ea 21:18 Follow up: Response: No adverse reaction; IV Status: Completed infusion ea Intake: 18:15 IV: 1000ml; Total: 1000ml. jl7 19:48 IV: 250ml; Total: 1250ml. ea Outcome: 18:46 ER care complete, transfer ordered by . cp 20:01 Instructed on the need for transfer, Demonstrated understanding of instructions. ea 20:25 Transferred Note: report called to MARION Hawthorne 21:17 Transferred by ground EMS to [facility], Transfer form completed. ea 21:17 Condition: stable 21:19 Patient left the ED. ea Signatures: Dispatcher [employer] EDEvi Lofton Steven, RN RN Richie Sen PA PA cp Wise, Tara RN RN tw2 Missy Chang RN RN jl7 Dinah Vicente RN RN ea Davies, Jonathon, RN RN jd3 Josie Clark3 Graham Long tt3
[2020-12-01] MEDS ORDERED: METHYLPREDNISOLONE 125 MG INJ ONE (19:07)
[2020-12-01] MEDS ORDERED: NA CHLORIDE 0.9% 100 ML ONE (20:11)
[2020-12-01] MEDS ORDERED: AMPICILLIN/SULBACTAM 3GM/VIAL ONE (20:11)
[2020-12-01 23:13] VITALS: BP 159/90; O2SAT 99
--- NOTE | 2020-12-02 06:32 | EKG ---
Test Date: 2020-12-01 Test Time: 16:33:32 Thread Roller: SARY MEASUREMENT RESULTS: Intervals: Rate: 62 DC: 208 QRSD: 88 QT: 390 QTc: 395 [place]: P: 2 DC: 208 QRS: -17 T: -21 INTERPRETIVE STATEMENTS: Normal sinus rhythm Inferior infarct, age undetermined Cannot rule out Anterior infarct, age undetermined Abnormal ECG Compared to ECG 12/11/2019 10:31:39 Myocardial infarct finding now present T-wave abnormality no longer present Electronically Signed On 12-02-20 06:31:46 WORK MEASUREMENT ENGINEER by Shoaib Garg
== END 2020-12-01 21:19 | disposition short-term general hospital (02) ==
LOC: ER 15:48
DX: L03.211 Cellulitis of face (principal); L03.212 Acute lymphangitis of face; Z20.822 Contact with and (suspected) exposure to COVID-19; I10 Essential (primary) hypertension; E78.5 Hyperlipidemia, unspecified; E11.9 Type 2 diabetes mellitus without complications
CPT/HCPCS: 96365; 96367; 93005; 87040 ×2; 85025; 80048; 36415; 85610; 80076; 83605; 84145; 86140; 70487; 76377; 71045; 96375; 99285; 96366; U0003; Q9967; J1200; J3370; J7030; J2930; J0295

== ENCOUNTER 2021-04-17 07:42 | Emergency (ER) | payer OTHER ==
--- OUTSIDE RECORDS SUMMARY | 2021-04-17 07:45 | XMS REPORT | Continuity of Care Document ---
:1960 Author Organization [facility] t Address [address] [place] [address] Care Team Providers Name Role Phone Pcp Primary Care Physician Unavailable Gurdeep CULP, PGabriela Attending Clinician aYriel CULP, Reshad Attending Clinician Radha Hollingsworth MD Attending Clinician Reese MACKENZIE Attending Clinician Unavailable RADHA HOLLINGSWORTH Admitting Clinician Unavailable Payers Payer Name Policy Type Policy Number Effective Date Expiration Date S elieser AETNA - MGD [id number] 2018 [place] Santi[employer] CAREAETNA O 00:00:00 - Medical POS Center [id number] 11/2018-[facility] O/POS Problems Condition Condition Condition Status Onset Resolution Last Treating Co mments Source Name Details Category Date Date Treatment Clinician Date Facial Facial Disease Active [place] Landa cellulitis cellulitis 12-01 Lizzy girons - 00:00: Medical 00 Center NBA NBA Disease Active [facility] (obstructi (obstructi [facility] - ve sleep ve sleep Medica l apnea) apnea) [place] Obesity Obesity Disease Active [facility] HTN HTN Disease Active [facility] (hypertens (hypertens [facility] - ion) ion) [facility] Diabetes Diabetes Disease Active [facility] S t mellitus mellitus [facility] Coronary Coronary Disease Active [facility] S t artery artery [facility] disease [facility] Allergies, Adverse Reactions, Alerts Allergy Allergy Status Severity Reaction(s) Onset Inactive Treating Comm ents Source Name Type Date Date Clinician Clindamy Drug Active Swelling Received [facility] St laureano Allergy 1-05 for [facility] 00:00: infection Medical 00 on [place] forehead, within 2 hours developed swelling shut of eyes, some tongue swelling and lip tingling, no wheezing or difficult y breathing and no rash Social History Social Habit Start Date Stop Date Quantity Comments Source Sex Assigned At [facility] Tobacco use and 2020-12-02 2020-12-02 Former user [facility] - exposure 00:00:00 00:00:00 [facility] Smoking Status Start Date Stop Date Source Former smoker 2020-12-02 00:00:00 2020-12-02 00:00:00 [facility] Medications Ordered Filled Start Stop Current Ordering Indication Dosage Frequency Signature Comments Components Source Medication Medication Date Date Medication? Clinician (SIG) Name Name atorvastati Yes 20mg QD Take [address] [facility] (LIPITOR) 1-07 by mouth Luke s - 20 MG 12:16: daily. Medical tablet 43 [place] carvediloL Yes 12.5mg Take 12.[address] [facility] (COREG) 1-07 mg by [facility] - 12.5 MG 12:16: mouth 2 Medical tablet 43 (two) Center times daily with breakfast and dinner. tamsulosin Yes .4mg QD Take 0.[address] [facility] (FLOMAX) 1-07 mg by [facility]ukes - 0.4 mg Cap 12:16: mouth Medica l 24 hr 43 daily. Center capsule metFORMIN Yes 1000mg Take 1,[address] [facility] (GLUCOPHAGE 1-07 mg by Lukes - ) 1000 MG 12:16: mouth 2 Medic al tablet 43 (two) Center times daily with breakfast and dinner. multivitami Yes 1{tbl} QD Take [address] [facility] per -07 tablet by [facility]ukes - tablet 12:16: mouth Medical 43 daily. Center losartan-hy Yes 1{tbl} QD Take [address] drochloroth -07 tablet by [facility] - iazide 12:16: mouth Medical (HYZAAR) 43 daily. Center 100-12.5 mg per tablet cyanocobala Yes 1000ug QD Take 1,[address] min, 1-07 mcg by Lukes - vitamin 12:16: mouth Medical B-12, 43 daily. [place] (vitamin B-12) 100 MCG tablet ferrous Yes 325mg Take 325 [facility] sulfate 325 1-07 mg by [facility]ukes - (65 FE) MG 12:16: mouth Medica l tablet 43 daily with Center breakfast. clopidogreL Yes 75mg QD Take [address] [facility] (PLAVIX) 75 -07 by mouth Luke s - mg tablet 12:16: daily. Medica l 43 [place] isosorbide Yes 30mg QD Take [address] mononitrate -07 by mouth Luke s - (IMDUR) 30 12:16: daily. Medic al MG 24 hr 43 [place] tablet losartan 2020- No 100mg QD Take [address] [facility] [address] (COZAAR) 12-03- mg by Lukes - 100 MG 09:45: 00:00 mouth Medical tablet 19 :00 daily. [place] linezolid 2020- No 600mg Take [address] [facility] [address] (ZYVOX) 600 12-03 tablet Lukes - mg tablet 00:00: 23:59 (600 mg Medi kala 00 :00 total) by Center mouth every 12 (twelve) hours for 7 days. linezolid 2020- No 600mg Take [address] [facility] [address] (ZYVOX) 600 12-03 tablet Lukes - mg tablet 00:00: 00:00 (600 mg Medi kala 00 :00 total) by Center mouth every 12 (twelve) hours for 7 days. Vital Signs Vital Name Observation Time Observation Value Comments Source Systolic blood 2020-12-03 07:53:00 133 mm[Hg] [facility] Diastolic blood 2020-12-03 07:53:00 91 mm[Hg] [facility] Heart rate 2020-12-03 07:53:00 57 /min [facility] Body temperature 2020-12-03 07:53:00 35.72 Felipa [facility] Respiratory rate 2020-12-03 07:53:00 19 /min [facility] Oxygen saturation in 2020-12-03 07:53:00 97 /min [facility] - Arterial blood by Medical Ce nter Pulse oximetry Body height 2020-12-01 22:42:00 172.7 cm [facility] Body weight 2020-12-01 22:42:00 100.971 kg [facility] BMI 2020-12-01 22:42:00 33.85 kg/m2 [facility] Procedures Procedure Date / Time Performed Performing Clinician Sonam e POCT-GLUCOSE METER 2020-12-03 07:55:00 Yariel [facility] POCT-GLUCOSE METER 2020-12-03 00:28:00 Yariel [facility] WOUND CULTURE + GRAM 2020-12-02 20:38:[address] [facility] ANAEROBIC CULTURE 2020-12-02 20:25:00 Carl [facility] POCT-GLUCOSE METER 2020-12-02 17:24:00 Yariel [facility] POCT-GLUCOSE METER 2020-12-02 12:10:00 Yariel [facility] SARS-COV2/RT-PCR ([facility] & 2020-12-02 06:43:00 Senait Hollingsworth [facility] - REF LABS) [facility] POCT-GLUCOSE METER 2020-12-02 05:53:00 Maria Isabel Mackenzie [facility] HEMOGLOBIN A1C 2020-12-02 05:51:00 Senait Hollingsworth [facility] MAGNESIUM 2020-12-02 05:51[facility] & AUTO 2020-12-02 05:51:00 Senait Hollingsworth [facility] DIFFERENTIAL [facility] (MANUAL DIFFERENTIAL) 2020-12-02 05:51:[address] [facility] BLOOD CULTURE 2020-12-02 01:27:00 [facility]ENS[facility] METABOLIC 2020-12-02 01:27:00 [facility] PROTHROMBIN TIME/INR 2020-12-02 01:27:00 Darrick [facility] CBC W/PLT COUNT & AUTO 2020-12-02 01:26:00 Senait Hollingsworth [facility] DIFFERENTIAL [facility] (CELLAVISION MANUAL DIFF) 2020-12-02 01:26:00 Senait Hollingsworth [facility] POCT-GLUCOSE METER 2020-12-01 23:50:00 Maria Isabel Mackenzie [facility] Plan of Care Planned Activity Planned Date Details Comments Source Future Scheduled 2021-07-28 [facility]ACCINE [facility]:00 (Season Ended) [code = Medic al Center INFLUENZA VACCINE (Season Ended)] Future Scheduled 2021-06-01 Hemoglobin A1c [facility] k[facility] - Test 00:00:00 [facility] Medical Center (procedure) [code = 43488523] Future Scheduled 2008 SHINGLES VACCINES ([address] [facility] - Test 00:00:00 of 2) [code = SHINGLES Medic al Center VACCINES (1 of 2)] Future Scheduled 1993 Lipid panel [facility] - Test 00:00:00 (procedure) [code = Medical Center 87140377] Future Scheduled 1977 DTAP/TDAP/TD [facility]ACCINES [facility] Test 00:00:00 (1 - Tdap) [code = Medical C enter DTAP/TDAP/TD VACCINES (1 - Tdap)] Future Scheduled 1976 HEPATITIS C [facility]CRE[facility]ING [facility] - Test 00:00:00 [code = HEPATITIS C Medical Center SCREENING] Future Scheduled 1970 COVID-19 VACCINE (1) [facility] - Test 00:00:00 [code = COVID-[address] VACCINE (1)] Future Scheduled 1968 DIABETIC EYE EXAM [facility] - Test 00:00:00 [code = DIABETIC EYE Medical Center EXAM] Future Scheduled [address] [facility] - Test 00:00:00 examination Medical Center (regime/therapy) [code = 165765237] Future Scheduled 1968 Urine screening for [facility] - Test 00:00:00 protein (procedure) Medical Center [code = 949631880] Future Scheduled [address] [facility] - Test 00:00:00 0-64 YRS (1 of 1 - Medical C enter PPSV23) [code = PNEUMOCOCCAL VACCINE 0-64 YRS (1 of 1 - PPSV23)] Future Scheduled [address] [facility] - Test 00:00:00 malignant neoplasm of Medica l Center colon (procedure) [code = 064968922] Encounters Start End Encounter Admission Attending Care Care Encounter Source Date/Time Date/Time Type Type Clinicians Facility Department ID 2021-04-09 2021-04-09 Outpatient [facility] [id number] [facility]00 [facility] - [facility] ent Clinics 2020-09-10 2020-09-10 Outpatient [facility] [id number] [facility]00 [facility] Results Test Description Test Time Test Comments Results Result Comments Source Anaerobic culture 2020-12-09 20:19:00 Test Item Value Reference Range Interpretation Comme nts Result (test code = 6463-4) 4+ Propionibacterium avidum A Lab Interpretation (test code = 33644-4) Abnormal [facility] [id number] 20:19:00 Test Item Value Reference Range Interpretation Comments CULTURE (BEAKER) A 4+ Propioni bacterium avidum (test code = 1095) Wound culture + gram [id number] 16:07:00 Test Item Value Reference Range Interpretation Comments Result (test code = No growth 6463-4) Gram Stain Result <1+ gram negative rods (test code = 1123) [facility] [id number] 16:07:00 Test Item Value Reference Range Interpretation Comments CULTURE (BEAKER) (test No growth code = 1095) GRAM STAIN RESULT 1+ WBCs (BEAKER) (test code = 1123) GRAM STAIN RESULT 1+ gram positive cocci (BEAKER) (test code = in pairs 16623) GRAM STAIN RESULT <1+ gram negative rods (BEAKER) (test code = 99003) Blood Culture - Routine (Left Venipuncture)2020-12-07 03:03:00 Test Item Value Reference Range Interpretation Comments Result (test code = No growth in 5 days 6463-4) [facility] [id number] 03:03:00 Test Item Value Reference Range Interpretation Comments CULTURE (BEAKER) (test No growth in 5 days code = 1095) BLOOD [id number] 03:03:00 Test Item Value Reference Range Interpretation Comments CULTURE (BEAKER) (test No growth in 5 days code = 1095) POC-Glucose [id number] 08:08:00 Test Item Value Reference Range Interpretation Comments POC-Glucose Meter (test 115 mg/dL 70-110 H : TE STED AT [facility] code = 1538) [address] [facility], 770 30: Synthetic Resin Operator/Techni lisa ID = [id number] for JORDAN WADDELL Lab Interpretation (test Abnormal code = 99213-8) [facility] [id number] 08:08:00 Test Item Value Reference Range Interpretation Comments POC-GLUCOSE METER 115 mg/dL 70-110 H : TESTED A T [facility] 6720 (BEAKER) (test code = BERTNEELAM R [facility], 1538) [address]: Synthetic Resin Operator/Techni lisa ID = [id number] for JORDAN BANEGAS POCT-GLUCOSE [id number] 00:40:00 Test Item Value Reference Range Interpretation Comments POC-GLUCOSE METER 144 mg/dL 70-110 H : [facility] (BEAKER) (test code = SONY [place], 1538) [address]: Synthetic Resin Operator/Techni lisa ID = [id number] for UZIEL MCGARRY POCT-GLUCOSE [id number] 17:36:00 Test Item Value Reference Range Interpretation Comments POC-GLUCOSE METER 177 mg/dL 70-110 H : TESTED A T [facility] 6720 (OTOY) (test code = SONY Heller [facility], 1538) [address]: Synthetic Resin Operator/Techni lisa ID = [id number] for JORDAN BANEGAS SARS-CoV2/RT-PCR (Asymptomatic ONLY)2020-12-02 13:13:00 Test Item Value Reference Range Interpretation Comments SARS-COV2/RT-PCR Negative Not Detected, (test code = Negative, See 98468-2) external report for linked test SARS-COV-2 [facility] PERFORMING LAB (test code = 86431-3) NATASHA (test code = Negative result for this NATASHA) test determines that SARS-CoV-2 RNA was not present in the specimen above the Limit of Detection (LOD). However, Negative results do not preclude SARS-CoV-2 infection and should not be used as the sole basis for treatment or patient management decisions. Negative results must be combined with clinical observations, patient history, and epidemiological information. A false negative result may occur if a specimen is improperly collected, transported or handled. A false negative result should be considered if patient's recent exposures or clinical presentation indicate that COVID-19 (SARS-CoV-2) is likely and diagnostic tests for other causes of illness are negative. Re-testing should be considered in cases of suspected false negatives. The limit of detection for this assay is 800 copies/mL. This SARS CoV-2 test is a real-time RT-PCR test intended for the qualitative detection of nucleic acid from SARS-CoV-2 in a nasopharyngeal swab specimen collected from individuals suspected of COVID-19 by their healthcare provider. This test has not been Food and Drug Administration (FDA) cleared or approved. This is a modified version of an approved Emergency Use Authorization (EUA) and is in the process of review by the FDA. Once authorized by the FDA, the issued EUA will be effective until the declaration that circumstances exist justifying the authorization of the emergency use of in vitro diagnostic tests for detection and/or diagnosis of COVID-19 is terminated under Section 564(b)(2) of the Act or the EUA is revoked under Section 564(g) of the Act. Fact Sheet for Healthcare Providers:https://www.[employer]/sites/default/f rea/product/documents/F act_Sheet_HC_Providers_L shf_YEWZ-SuO-1.pdf Fact Sheet for Healthcare Patients:https://www.[employer]/sites/default/fi les/product/documents/Fa ct_Sheet_Patients_Lyra_S ARS-CoV-2.pdf Performing Laboratory:[facility]ARS-COV2/RT-PCR ([facility] & REF LABS)2020-12-02 13:13:00 Test Item Value Reference Range Interpretation Comments SARS-COV2/RT-PCR (test Negative Not Detected, Negative, code = 6202844) See external report for linked test SARS-COV-[address] [facility] L[facility] (test code = 9440167) Negative result for this test determines that SARS-CoV-2 RNA was not present in the specimen above the Limit of Detection (LOD). However, Negative results do not preclude SARS-CoV-2 infection and should not be used as the sole basis for treatment or patient management decisions. Negative results mustbe combined with clinical observations, patient history, and epidemiological information. A false negative result may occur if a specimen is improperly collected, transported or handled. A false negative result should be considered if patient's recent exposures or clinical presentation indicate that COVID-19 (SARS-CoV-2) is likely and diagnostic tests for other causes of illness are negative. Re-testing should be considered in cases of suspected false negatives.The limit of detection for this assay is 800 copies/mL.This SARS CoV-2 test is a real-time RT-PCR test intended for the qualitative detection of nucleic acid from SARS-CoV-2 in a nasopharyngeal swab specimen collected from individuals susp ected of COVID-19 by their healthcare provider.This test has not been Food and Drug Administration (FDA) cleared or approved. This is a modified version of an approved Emergency Use Authorization (EUA) and is in the process of review by the FDA. Once authorized by the FDA, the issued EUA will be effective until the declaration that circumstances exist justifying the authorization of the emergency use of in vitro diagnostic tests for detection and/or diagnosis of COVID-19 is terminated under Section 564(b)(2) of the Act or the EUA is revoked under Section 564(g) of the Act.Fact Sheet for Healthcare Providers:https://www.[employer]/sites/default/files/product/documents/Fact_Shee e_PM_Iqkogbocd_Uqdp_GRFF-HqL-9.pdfFact Sheet for Healthcare Patients:https://www.[employer]/sites/default/files/product/ documents/Przt_Dkoiq_Ybmotzaa_Ujkw_HJXZ-ChN-4.pdfPerforming Laboratory:[facility], [place] [address]TQUZ-DAGURRF METER 2020-12-02 12:22:00 Test Item Value Reference Range Interpretation Comments POC-GLUCOSE METER 97 mg/dL 70-110 : TESTED A T [facility] 6720 (BEAKER) (test code = SONY Heller [facility], 1538) [address]: Synthetic Resin Operator/Techni lisa ID = [id number] for JORDAN STEPHENS CBC with platelet count + automated [id number] 09:36:00 Test Item Value Reference Range Interpretation Comments WBC (test code = 6690-2) 14.0 See_Comment H [A utomated message] The system [employer] generated this result transmitted ref erence range: 3.5 - 10 .5 K/L. The refe rence range was not u sed to interpret this result as normal/abnor mal. RBC (test code = 789-8) 4.69 See_Comment [Au tomated message] The system [employer] generated this result transmitted ref erence range: 4.63 - 6 .08 M/L. The refe rence range was not u sed to interpret this result as normal/abnor mal. MCHC (test code = 786-4) 32.7 See_Comment [A utomated message] The system [employer] generated this result transmitted ref erence range: 32.3 - 3 6.5 GM/DL. The refe rence range was not u sed to interpret this result as normal/abnor mal. Hematocrit (test code = 43.1 % 40.1-51 4544-3) MCV (test code = 787-2) 91.9 fL 79-92.2 MCH (test code = 785-6) 30.1 pg 25.7-32.2 RDW (test code = 788-0) 12.7 % 11.6-14.4 Platelets (test code = 173 See_Comment [Aut omated message] 777-3) The system [employer] generated this result transmitted ref erence range: 150 - 45 0 K/CU MM. The referen ce range was not u sed to interpret this result as normal/abnor mal. MPV (test code = 11.3 fL 9.4-12.4 10837-8) nRBC (test code = 413) 0 See_Comment [Aut omated message] The system [employer] generated this result transmitted ref erence range: 0 - 0 /1 00 WBC. The refere nce range was not u sed to interpret this result as normal/abnor mal. Lab Interpretation (test Abnormal code = 05933-9) [facility] [id number] 09:36:00 Test Item Value Reference Range Interpretation Comments % Neutros (manual) 53 % (test code = 1359) % Lymphs (manual) 42 % (test code = 1360) % Monos (manual) 1 % (test code = 1361) % Eos (manual) (test 0 % code = 1362) % Baso (manual) 0 % (test code = 1363) % Bands (manual) 2 % 0-10 (test code = 1348) % Atypical Lymphs 2 % 0-0 H (test code = 260) # Neutros (manual) 7.42 See_Comment [Automat ed (test code = 1365) message] The system which generated this result transmitted reference range : 1.80 - 8.00 K/L. The reference range was not used to interpret this result as normal/abnormal . # Lymphs (manual) 5.88 See_Comment H [Automate d (test code = 1366) message] The system which generated this result transmitted reference range : 1.48 - 4.50 K/L. The reference range was not used to interpret this result as normal/abnormal . # Monos (manual) 0.14 See_Comment [Automated (test code = 1367) message] The system which generated this result transmitted reference range : 0.00 - 1.30 K/L. The reference range was not used to interpret this result as normal/abnormal . # Eos (manual) (test 0.00 See_Comment [Autom ated code = 1368) message] The system which generated this result transmitted reference range : 0.00 - 0.50 K/L. The reference range was not used to interpret this result as normal/abnormal . # Baso (manual) 0.00 See_Comment [Automated (test code = 1369) message] The system which generated this result transmitted reference range : 0.00 - 0.20 K/L. The reference range was not used to interpret this result as normal/abnormal . # Bands (manual) 0.3 See_Comment [Automated (test code = 1349) message] The system which generated this result transmitted reference range : 0.0 - 0.8 K/L . The reference range was not used to interpr et this result as normal/abnormal . # Atypical Lymphs 0.28 See_Comment H [Automate d (test code = 263) message] T he system which generated this result transmitted reference range : 0.00 - 0.00 K/L. The reference range was not used to interpret this result as normal/abnormal . Total Counted (test 100 code = 1351) Bands plus Segmented 7.70 Neutrophils (test code = 1352) WBC Morphology (test Normal code = 487) Platelet Morphology Normal (test code = 486) Ovalocytes (test 1+ few code = 477) NATASHA (test code = Differential NATASHA) performed on an albumin slide Lab Interpretation Abnormal (test code = 34369-9) [facility] W/PLT COUNT & AUTO [id number] 09:36:00 Test Item Value Reference Range Interpretation Comments WHITE BLOOD CELL COUNT (BEAKER) 14.0 K/ L 3.5-10.5 H (test code = 775) RED BLOOD CELL COUNT (BEAKER) 4.69 M/ L 4.63-6.08 (test code = 761) HEMOGLOBIN (BEAKER) (test code = 14.1 GM/DL 13.7-17.5 410) HEMATOCRIT (BEAKER) (test code = 43.1 % 40.1-51.0 411) MEAN CORPUSCULAR VOLUME (BEAKER) 91.9 fL 79.0-92.2 (test code = 753) MEAN CORPUSCULAR HEMOGLOBIN 30.1 pg 25.7-32.2 (BEAKER) (test code = 751) MEAN CORPUSCULAR HEMOGLOBIN CONC 32.7 GM/DL 32.3-36.5 (BEAKER) (test code = 752) RED CELL DISTRIBUTION WIDTH 12.7 % 11.6-14.4 (BEAKER) (test code = 412) PLATELET COUNT (BEAKER) (test 173 K/CU MM 150-450 code = 756) MEAN PLATELET VOLUME (BEAKER) 11.3 fL 9.4-12.4 (test code = 754) NUCLEATED RED BLOOD CELLS 0 /100 WBC 0-0 (BEAKER) (test code = 413) (MANUAL DIFFERENTIAL)2020-12-02 09:36:00 Test Item Value Reference Range Interpretation Comments NEUTROPHILS - REL (DIFF) (BEAKER) 53 % (test code = 1359) LYMPHOCYTES - REL (DIFF) (BEAKER) 42 % (test code = 1360) MONOCYTES - REL (DIFF) (BEAKER) 1 % (test code = 1361) EOSINOPHILS - REL (DIFF) (BEAKER) 0 % (test code = 1362) BASOPHILS - REL (DIFF) (BEAKER) 0 % (test code = 1363) BANDS - REL (DIFF) (BEAKER) (test 2 % 0-10 code = 1348) ATYPICAL LYMPHOCYTE - REL (DIFF) 2 % 0-0 H (BEAKER) (test code = 260) NEUTROPHILS - ABS (DIFF) (BEAKER) 7.42 K/ L 1.80-8.00 (test code = 1365) LYMPHOCYTES - ABS (DIFF) (BEAKER) 5.88 K/ L 1.48-4.50 H (test code = 1366) MONOCYTES - ABS (DIFF) (BEAKER) 0.14 K/ L 0.00-1.30 (test code = 1367) EOSINOPHILS - ABS (DIFF) (BEAKER) 0.00 K/ L 0.00-0.50 (test code = 1368) BASOPHILS - ABS (DIFF) (BEAKER) 0.00 K/ L 0.00-0.20 (test code = 1369) BANDS-ABS (DIFF) (BEAKER) (test 0.3 K/ L 0.0-0.8 code = 1349) ATYPICAL LYMPHOCYTES - ABS (DIFF) 0.28 K/ L 0.00-0.00 H (BEAKER) (test code = 263) TOTAL COUNTED (BEAKER) (test code = 100 1351) BANDS + SEGMENTED NEUTROPHILS 7.70 (BEAKER) (test code = 1352) WBC MORPHOLOGY (BEAKER) (test code Normal = 487) PLT MORPHOLOGY (BEAKER) (test code Normal = 486) OVALOCYTES (BEAKER) (test code = 1+ few 477) Differential performed on an albumin slideHemoglobin [id number] 08:17:00 Test Item Value Reference Range Interpretation Comments Hemoglobin A1C (test code = 4548-4) 6.3 % 4.3-6.1 H Lab Interpretation (test code = Abnormal 00065-1) [facility] [id number] 08:17:00 Test Item Value Reference Range Interpretation Comments HEMOGLOBIN A1C (BEAKER) (test code = 6.3 % 4.3-6.1 H 368) [id number] 06:46:00 Test Item Value Reference Range Interpretation Comments Magnesium (test code = 2.0 mg/dL 1.6-2.6 66973-9) NATASHA (test code = NATASHA) Synthetic Resin Operator ID - [id number] Lab Interpretation (test Normal code = 29792-2) [facility] [facility]00 Test Item Value Reference Range Interpretation Comments MAGNESIUM (BEAKER) (test code = 2.0 mg/dL 1.6-2.6 627) Synthetic Resin Operator ID - ADMINPOCT-GLUCOSE [id number] 06:05:00 Test Item Value Reference Range Interpretation Comments POC-GLUCOSE METER 153 mg/dL 70-110 H : TESTED A T [facility] 6720 (BEAKER) (test code = [place]IENEELAM [place], 1538) [address]: Synthetic Resin Operator/Techni lisa ID = [id number] for YORDAN HERNÁNDEZ Manual [id number] 04:11:00 Test Item Value Reference Range Interpretation Comments % Neutros (test code = 59 % 2816) % Lymphs (test code = 38 % 2817) % Monos (test code = 2 % 2818) % Metamyelo (test code = 1 % 0-0 H 2821) # Neutros (test code = 8.26 K/ul 1.78-5.38 H 2830) # Lymphs (test code = 5.32 K/ul 1.32-3.57 H 2831) # Monos (test code = 0.28 K/uL 0.3-0.82 L 2832) # Metamyelo (test code = 0.14 K/uL 0-0 H 2836) Total Counted (test code 100 = 1351) RBC Morphology (test Normal code = 762) WBC Morphology (test Normal code = 487) Large Platelet (test Present code = 2156) Platelet Conc (test code Adequate = 3438) NATASHA (test code = NATASHA) Synthetic Resin Operator ID - IshiUser comments: Slide comments:Wbc differential done manually Lab Interpretation (test Abnormal code = 15281-0) [facility] W/PLT COUNT & AUTO [id number] 04:11:00 Test Item Value Reference Range Interpretation Comments WHITE BLOOD CELL COUNT (BEAKER) 14.0 K/ L 3.5-10.5 H (test code = 775) RED BLOOD CELL COUNT (BEAKER) 4.52 M/ L 4.63-6.08 L (test code = 761) HEMOGLOBIN (BEAKER) (test code = 13.8 GM/DL 13.7-17.5 410) HEMATOCRIT (BEAKER) (test code = 42.2 % 40.1-51.0 411) MEAN CORPUSCULAR VOLUME (BEAKER) 93.4 fL 79.0-92.2 H (test code = 753) MEAN CORPUSCULAR HEMOGLOBIN 30.5 pg 25.7-32.2 (BEAKER) (test code = 751) MEAN CORPUSCULAR HEMOGLOBIN CONC 32.7 GM/DL 32.3-36.5 (BEAKER) (test code = 752) RED CELL DISTRIBUTION WIDTH 12.6 % 11.6-14.4 (BEAKER) (test code = 412) PLATELET COUNT (BEAKER) (test 174 K/CU MM 150-450 code = 756) MEAN PLATELET VOLUME (BEAKER) 11.1 fL 9.4-12.4 (test code = 754) NUCLEATED RED BLOOD CELLS 0 /100 WBC 0-0 (BEAKER) (test code = 413) (CELLAVISION MANUAL DIFF)2020-12-02 04:11:00 Test Item Value Reference Range Interpretation Comments NEUTROPHILS - REL 59 % (CELLAVISION)(BEAKER) (test code = 2816) LYMPHOCYTES - REL 38 % (CELLAVISION)(BEAKER) (test code = 2817) MONOCYTES - REL 2 % (CELLAVISION)(BEAKER) (test code = 2818) METAMYELOCYTES - REL 1 % 0-0 H (CELLAVISION)(BEAKER) (test code = 2821) NEUTROPHILS - ABS 8.26 K/ul 1.78-5.38 H (CELLAVISION)(BEAKER) (test code = 2830) LYMPHOCYTES - ABS 5.32 K/ul 1.32-3.57 H (CELLAVISION)(BEAKER) (test code = 2831) MONOCYTES - ABS 0.28 K/uL 0.30-0.82 L (CELLAVISION)(BEAKER) (test code = 2832) METAMYELOCYTES - ABS 0.14 K/uL 0.00-0.00 H (CELLAVISION)(BEAKER) (test code = 2836) TOTAL COUNTED (BEAKER) (test code = 100 1351) RBC MORPHOLOGY (BEAKER) (test code Normal = 762) WBC MORPHOLOGY (BEAKER) (test code Normal = 487) LARGE PLT(BEAKER) (test code = Present 2156) PLATELET CONCENTRATION Adequate (CELLAVISION)(BEAKER) (test code = 3438) Synthetic Resin Operator ID - Allyson comments: Slide comments:Wbc differential done manually Comprehensive metabolic [id number] 02:12:00 Test Item Value Reference Range Interpretation Comments Protein, Total (test 6.9 See_Comment [Autom ated code = 2885-2) message] The system which generated this result transmit delilah reference range : 6.0 - 8.3 gm/dL . The reference range was not u sed to interpret th is result as normal/abnormal . Albumin (test code = 4.1 g/dL 3.5-5 22344-9) Alkaline Phosphatase 95 U/L 40-150 (test code = 6768-6) Total Bilirubin (test 0.9 mg/dL 0.2-1.2 code = 1974-2) Sodium (test code = 138 meq/L 815-212 6514-2) Potassium (test code 3.9 meq/L 3.5-5.1 = 2823-3) Chloride (test code = 106 meq/L 98-107 5-0) CO2 (test code = 22 meq/L 22-29 2027-9) BUN (test code = 12 mg/dL 7- 3094-0) Creatinine (test code 0.73 mg/dL 0.57-1.25 = 2160-0) Glucose (test code = 159 mg/dL 70-105 H 2345-7) Calcium (test code = 8.0 mg/dL 8.4-10.2 L 32807-3) AST (test code = 20 U/L 5-34 1920-8) ALT (test code = 22 U/L 6-55 1742-6) EGFR (test [place] = [place] [address]-7) CLINICAL DATA T O CALCULATE ESTIMATED GFR. NATASHA (test code = NATASHA) Synthetic Resin Operator ID - PIAYA L Lab Interpretation Abnormal (test code = 67332-6) [facility] [id number] 02:12:00 Test Item Value Reference Range Interpretation Comments TOTAL PROTEIN 6.9 gm/dL 6.0-8.3 (BEAKER) (test code = 770) ALBUMIN (BEAKER) 4.1 g/dL 3.5-5.0 (test code = 1145) ALKALINE PHOSPHATASE 95 U/L 40-150 (BEAKER) (test code = 346) BILIRUBIN TOTAL 0.9 mg/dL 0.2-1.2 (BEAKER) (test code = 377) SODIUM (BEAKER) (test 138 meq/L 136-145 code = 381) POTASSIUM (BEAKER) 3.9 meq/L 3.5-5.1 (test code = 379) CHLORIDE (BEAKER) 106 meq/L 98-107 (test code = 382) CO2 (BEAKER) (test 22 meq/L -29 code = 355) BLOOD UREA NITROGEN 12 mg/dL 7-21 (BEAKER) (test code = 354) CREATININE (BEAKER) 0.73 mg/dL 0.57-1.25 (test code = 358) GLUCOSE RANDOM 159 mg/dL 70-105 H (BEAKER) (test code = 652) CALCIUM (BEAKER) 8.0 mg/dL 8.4-10.2 L (test code = 697) AST (SGOT) (BEAKER) 20 U/L 5-34 (test code = 353) ALT (SGPT) (BEAKER) 22 U/L 6-55 (test code = 347) EGFR (BEAKER) (test INSUFFIC IENT CLINICAL code = 1092) DATA TO CALCULA TE ESTIMATED GFR. Synthetic Resin Operator ID - PIAYA LProthrombin time/[id number] 01:53:00 Test Item Value Reference Interpretation Comments Range Protime (test code = 13.4 See_Comment [Autom ated 5902-2) message] The system which generated this result transmitted reference range : 11.9 - 14.2 seconds. The reference range was not used to interpret this result as normal/abnormal . INR (test code = 1.05 See_Comment [Automated 6301-6) message] The system which generated this result transmitted reference range : <=5.90. The reference range was not used to interpret this result as normal/abnormal . NATASHA (test code = Effective 04/24/2019: NATASHA) PT Reference Range ChangeNew: 11.9-14.2 Previous: 11.7-14.7 RECOMMENDED COUMADIN/WARFARIN INR THERAPY RANGESSTANDARD DOSE: 2.0-3.0 Includes: PROPHYLAXIS for venous thrombosis, systemic embolization; TREATMENT for venous thrombosis and/or pulmonary embolus.HIGH RISK: Target INR is 2.5-3.5 for patients wiht mechanical heart valves. Lab Interpretation Normal (test code = 53382-7) [facility]/[id number] 01:53:00 Test Item Value Reference Range Interpretation Comments PROTIME (BEAKER) (test code = 13.4 seconds 11.9-14.2 759) INR (BEAKER) (test code = 370) 1.05 <=5.90 Effective 04/24/2019: PT Reference Range ChangeNew: 11.9-14.2 Previous: 11.7- 14.7RECOMMENDED COUMADIN/WARFARIN INR THERAPY RANGESSTANDARD DOSE: 2.0-3.0 Includes: PROPHYLAXIS for venous thrombosis, systemic embolization; TREATMENT for venous thrombosis and/or pulmonary embolus.HIGH RISK: Target INR is2.5-3.5 for patients wiht mechanical heart valves.POCT-GLUCOSE [id number] 00:03:00 Test Item Value Reference Range Interpretation Comments POC-GLUCOSE METER 166 mg/dL 70-110 H : TESTED A T [facility] 6720 (OTOY) (test code = SONY K[place], 1538) [address]: Synthetic Resin Operator/Techni lisa ID = [id number] for YORDAN DISLA
[2021-04-17] MEDS ORDERED: CYCLOBENZAPRINE 10 MG TAB ONE (08:32)
[2021-04-17] MEDS ORDERED: HYDROCODONE/APAP 10/325 TAB ONE (08:33)
[2021-04-17] MEDS ORDERED: ONDANSETRON 4 MG (ODT) TAB ONE (09:38)
--- NOTE | 2021-04-17 09:53 | EDPHYS ---
Physician Documentation [facility] Name: Moe Rivero Age: 60 yrs Sex: Male : 1960 Arrival Date: 04/17/2021 Time: 07:45 Bed 18 Private MD: Kaya David K ED Physician Pedro Coombs HPI: 04/17 08:28 This 60 yrs old Male presents to ER via Ambulatory with complaints of Fall kdr Injury, Rib Pain. 08:28 Details of fall: The patient fell from an upright position, while standing. Onset: The kdr symptoms/episode began/occurred suddenly, 2 day(s) ago. Associated injuries: The patient sustained injury to the chest, specifically the left lateral posterior chest, contusion, ecchymosis, pain with breathing, pain with movement, tenderness. Severity of symptoms: At their worst the symptoms were moderate, severe, incapacitating, just prior to arrival, in the emergency department the symptoms are unchanged. The patient has not experienced similar symptoms in the past. The patient has been recently seen by a physician: The patient has been recently seen at an urgent care, this week, for similar complaints, States an x-ray was taken and he was given OTC meds for pain. This morning, the pain was so intense that he was not able to get out of bed without assistance. Historical: - Allergies: 07:58 Clindamycin; hb - Home Meds: 07:58 atorvastatin 20 mg Oral tab 1 tab once daily [Active]; carvedilol 12.5 mg Oral tab 1 hb tab 2 times per day [Active]; metformin 1,000 mg Oral tr24 1 tab once daily [Active]; tamsulosin 0.4 mg Oral cp24 1 cap once daily [Active]; - PMHx: 07:58 Diabetes - NIDDM; Hyperlipidemia; Hypertension; hb - PSHx: 07:58 Bariatric surgery; Uro-lift; hb - Immunization history:: Adult Immunizations up to date. - Social history:: Smoking status: Patient denies any tobacco usage or history of. ROS: 08:28 Constitutional: Negative for fever, chills, and weight loss, Eyes: Negative for injury, kdr pain, redness, and discharge, ENT: Negative for injury, pain, and discharge, Neck: Negative for injury, pain, and swelling, Respiratory: Negative for shortness of breath, cough, wheezing, and pleuritic chest pain, Abdomen/GI: Negative for abdominal pain, nausea, vomiting, diarrhea, and constipation, Back: Negative for injury and pain, : Negative for injury, bleeding, discharge, and swelling, MS/Extremity: Negative for injury and deformity, Skin: Negative for injury, rash, and discoloration, Neuro: Negative for headache, weakness, numbness, tingling, and seizure activity. Psych: Negative for depression, anxiety, suicide ideation, homicidal ideation, and hallucinations, Allergy/Immunology: Negative for hives, rash, and allergies, Endocrine: Negative for neck swelling, polydipsia, polyuria, polyphagia, and marked weight changes, Hematologic/Lymphatic: Negative for swollen nodes, abnormal bleeding, and unusual bruising. 08:28 Cardiovascular: Positive for chest pain, with cough, with movement, of the left lateral posterior chest. Exam: 08:28 Constitutional: This is a well developed, well nourished patient who is awake, alert, kdr and in no acute distress. Chest/axilla: Normal chest wall appearance and motion. Nontender with no deformity. No lesions are appreciated. Back: No spinal tenderness. No costovertebral tenderness. Full range of motion. 08:28 Chest/axilla: Palpation: tenderness, that is moderate, of the left lateral posterior chest. Vital Signs: 07:56 BP 157 / 87; Pulse 71; Resp 16; Temp 97.8; Pulse Ox 100% on R/A; Pain 9/10; hb 10:08 BP 123 / 84; Pulse 76; Resp 16 S; Pulse Ox 100% on R/A; ca1 MDM: 08:28 Data reviewed: vital signs, nurses notes, radiologic studies. Counseling: I had a kdr detailed discussion with the patient and/or guardian regarding: the historical points, exam findings, and any diagnostic results supporting the discharge/admit diagnosis, radiology results, the need for outpatient follow up. 09:52 Patient medically screened. [facility] 04/17 08:13 Order name: CXR XRAY [facility] 04/17 08:13 Order name: Ribs Left XRAY [facility] 04/17 10:11 Order name: INCENTIVE SPIROMETRY ca1 Administered Medications: 08:14 Drug: Flexeril (cyclobenzaprine) 10 mg Route: PO; ca1 10:04 Follow up: Response: No adverse reaction; Pain is decreased ca1 08:16 Drug: [place] (HYDROcodone-acetaminophen) 10 mg-325 mg 1 tabs {Note: rass 0.} Route: PO; ca1 10:03 Follow up: Response: No adverse reaction; Pain is decreased; RASS: Alert and Calm (0) ca1 09:19 Drug: Ondansetron 4 mg Route: PO; ca1 10:04 Follow up: Response: No adverse reaction; Nausea is decreased ca1 Disposition: 04/17/21 09:52 Discharged to Home. Impression: Chest wall pain, Fracture of one rib, left side. - Condition is Stable. - Discharge Instructions: Chest Wall Pain, Bpwc-[id number]-Reca, Rib Fracture, Jqdm-ub-Anws. - Prescriptions for ondansetron 4 mg Oral tablet,disintegrating - place 1 tablet by TRANSLINGUAL route every 4-6 hours As needed; 12 tablet. Tylenol- Codeine #3 300-30 mg Oral Tablet - take 2 tablet by ORAL route every 4-6 hours As needed; 6 tablet. Cyclobenzaprine 5 mg Oral Tablet - take 1 tablet by ORAL route 3 times per day As needed; 15 tablet. - Medication Reconciliation Form, Thank You Letter, Prescription Opioid Use form. - Follow up: Kaya David MD; When: 2 - 3 days; Reason: If symptoms return, Further diagnostic work-up, Recheck today's complaints, Continuance of care, Re-evaluation by your physician. - Problem is new. - Symptoms have improved. Signatures: Dispatcher [employer] EDMS Pedro Coombs MD MD [facility] Adeline Reynolds RN RN Tina Rogel RN RN ca1 Corrections: (The following items were deleted from the chart) 10:12 09:52 04/17/2021 09:52 Discharged to Home. Impression: Chest wall pain; Fracture of one ca1 rib, left side. Condition is Stable. Forms are Medication Reconciliation Form, Thank You Letter, Antibiotic Education, Prescription Opioid Use. Follow up: Kaya Davdi; When: 2 - 3 days; Reason: If symptoms return, Further diagnostic work-up, Recheck today's complaints, Continuance of care, Re-evaluation by your physician. Problem is new. Symptoms have improved. kdr
--- NOTE | 2021-04-17 09:53 | ER ---
Nurse's Notes [facility] Name: Moe Rivero Age: 60 yrs Sex: Male : 1960 Arrival Date: 04/17/2021 Time: 07:45 Bed 18 Private MD: Kaya David K Diagnosis: Chest wall pain;Fracture of one rib, left side Presentation: 04/17 07:56 Chief complaint: Left sided chest wall pain after mechanical fall from standing 2 days hb ago. Pt was at work and fell onto a valve. Coronavirus screen: At this time, the client does not indicate any symptoms associated with coronavirus-19. Ebola Screen: No symptoms or risks identified at this time. Initial Sepsis Screen: Does the patient meet any 2 criteria? No. Patient's initial sepsis screen is negative. Does the patient have a suspected source of infection? No. Patient's initial sepsis screen is negative. Risk Assessment: Do you want to hurt yourself or someone else? Patient reports no desire to harm self or others. Onset of symptoms was April 15, 2021. 07:56 Method Of Arrival: Ambulatory hb 07:56 Acuity: SUZANNE 4 hb Historical: - Allergies: 07:58 Clindamycin; hb - Home Meds: 07:58 atorvastatin 20 mg Oral tab 1 tab once daily [Active]; carvedilol 12.5 mg Oral tab 1 hb tab 2 times per day [Active]; metformin 1,000 mg Oral tr24 1 tab once daily [Active]; tamsulosin 0.4 mg Oral cp24 1 cap once daily [Active]; - PMHx: 07:58 Diabetes - NIDDM; Hyperlipidemia; Hypertension; hb - PSHx: 07:58 Bariatric surgery; Uro-lift; hb - Immunization history:: Adult Immunizations up to date. - Social history:: Smoking status: Patient denies any tobacco usage or history of. Screenin:00 Abuse screen: Denies threats or abuse. Denies injuries from another. Nutritional ca1 screening: No deficits noted. Tuberculosis screening: No symptoms or risk factors identified. Fall Risk Fall in past 12 months (25 points). Total Kwok Fall Scale indicates No Risk (0-24 pts). Assessment: 08:00 General: Appears in no apparent distress. uncomfortable, Behavior is calm, cooperative, ca1 appropriate for age. Pain: Complains of pain in left mid back Pain currently is 5 out of 10 on a pain scale. at worst was 10 out of 10 on a pain scale. Pain began 2-3 days ago. Aggravated by repositioning. Neuro: Level of Consciousness is awake, alert, obeys commands, Oriented to person, place, time, situation. Derm: Skin is intact, is healthy with good turgor, Skin is pink, warm \T\ dry. Bruising that is dark purple, on left lateral posterior chest. Musculoskeletal: Circulation, motion, and sensation intact. Capillary refill < 3 seconds. 09:00 Reassessment: Patient appears in no apparent distress at this time. Patient and/or ca1 family updated on plan of care and expected duration. Pain level reassessed. Patient is alert, oriented x 3, equal unlabored respirations, skin warm/dry/pink. 10:00 Reassessment: Patient appears in no apparent distress at this time. Patient is alert, ca1 oriented x 3, equal unlabored respirations, skin warm/dry/pink. Patient states feeling better. 10:09 Reassessment: Pt provided with incentive spirometer per Dr. Coombs. Instructed on ca1 proper use, verbalized understanding, demonstrated appropriate use. Vital Signs: 07:56 BP 157 / 87; Pulse 71; Resp 16; Temp 97.8; Pulse Ox 100% on R/A; Pain 9/10; hb 10:08 BP 123 / 84; Pulse 76; Resp 16 S; Pulse Ox 100% on R/A; ca1 ED Course: 07:45 Patient arrived in ED. mr 07:46 Kaya David MD is Private Physician. mr 07:53 Pedro Coombs MD is Attending Physician. kdr 07:57 Tina Rogel, MARION is Primary Nurse. ca1 07:57 Triage completed. hb 07:58 Arm band placed on. hb 08:00 Patient has correct armband on for positive identification. Bed in low position. Call ca1 light in reach. Side rails up X 1. Pulse ox on. NIBP on. 09:15 CXR XRAY In Process Unspecified. EDMS 09:15 Ribs Left XRAY In Process Unspecified. EDMS 09:52 Kaya David MD is Referral Physician. kdr 10:11 No provider procedures requiring assistance completed. Patient did not have IV access ca1 during this emergency room visit. Administered Medications: 08:14 Drug: Flexeril (cyclobenzaprine) 10 mg Route: PO; ca1 10:04 Follow up: Response: No adverse reaction; Pain is decreased ca1 08:16 Drug: [place] (HYDROcodone-acetaminophen) 10 mg-325 mg 1 tabs {Note: rass 0.} Route: PO; ca1 10:03 Follow up: Response: No adverse reaction; Pain is decreased; RASS: Alert and Calm (0) ca1 09:19 Drug: Ondansetron 4 mg Route: PO; ca1 10:04 Follow up: Response: No adverse reaction; Nausea is decreased ca1 Outcome: 09:52 Discharge ordered by MD. kdr 10:11 Discharged to home ambulatory, with family. ca1 10:11 Condition: stable 10:11 Discharge instructions given to patient, family, Instructed on discharge instructions, follow up and referral plans. no drinking with medication, no driving heavy equipment, medication usage, Demonstrated understanding of instructions, follow-up care, medications, Prescriptions given X 3. 10:12 Patient left the ED. ca1 Signatures: Dispatcher [employer] EDMS Pedro Coombs MD MD [facility] Michelle Chua mr Adeline Reynolds, MARION RN Tina Rogel RN RN ca1 Corrections: (The following items were deleted from the chart) 10:02 09:00 Reassessment: Patient appears in no apparent distress at this time. Patient is ca1 alert, oriented x 3, equal unlabored respirations, skin warm/dry/pink. Patient states feeling better. ca1
[2021-04-17 10:18] VITALS: TEMP 97.8; O2SAT 100
[2021-04-17 10:19] VITALS: BP 123/84
--- NOTE | 2021-04-17 10:28 | RAD REPORT ---
EXAM DESCRIPTION: RAD - Chest Single View - 04/17/2021 9:28 am CLINICAL HISTORY: CHEST PAIN Chest pain. COMPARISON: Abdomen 1 View (KUB) dated 04/09/2021; Chest Single View dated 12/01/2020; Chest Pa And Lat (2 Views) dated 12/11/2019; Chest Pa And Lat (2 Views) dated 01/05/2019 FINDINGS: Portable technique limits examination quality. The lungs are grossly clear. The heart is normal in size. No displaced fractures.Mildly tortuous thor acic aorta. IMPRESSION: No acute intrathoracic process suspected.
--- NOTE | 2021-04-17 10:32 | RAD REPORT ---
EXAM DESCRIPTION: RAD - Ribs Left - 04/17/2021 9:16 am CLINICAL HISTORY: PAIN COMPARISON: Chest Single View dated 04/17/2021 FINDINGS: No displaced left-sided rib fractures seen. No aggressive rib lesion.
== END 2021-04-17 10:12 | disposition home or self-care (01) ==
LOC: ER 07:42
DX: S22.32XA Fracture of one rib, left side, initial encounter for closed fracture (principal); E11.9 Type 2 diabetes mellitus without complications; E78.5 Hyperlipidemia, unspecified; I10 Essential (primary) hypertension; Z79.84 Long term (current) use of oral hypoglycemic drugs; W19.XXXA Unspecified fall, initial encounter
CPT/HCPCS: 71045; 99284

== ENCOUNTER 2023-10-12 06:16 | Day surgery (SDC) | payer OTHER ==
[2023-10-10 10:06] LABS: Absolute Lymphocytes (CBC) 10.9 K/uL (0.7-4.9); Hematocrit 40.2 % (39.6-49.0); Lymphocytes % 69.8 % (15.3-44.8); MCV 93.3 fL (80-100); MPV 9.3 fL (7.6-11.3); Platelets 185 thou/uL (152-406)
[2023-10-10 10:08] LABS: Protime INR 1.23
[2023-10-10 10:28] LABS: Potassium 3.6 mEq/L (3.5-5.1)
[2023-10-10 12:33] LABS: Blood Morphology Comment NOT SEEN (NOT SEEN); Platelet Estimate ADEQ; Smudge Cells PRESENT
--- NOTE | 2023-10-11 17:25 | EKG ---
Test Date: 2023-10-10 Test Time: 10:44:32 Police Inspector: RACHEL MEASUREMENT RESULTS: Intervals: Rate: 53 IA: 208 QRSD: 90 QT: 632 QTc: 593 Redby: P: 39 IA: 208 QRS: -3 T: -24 INTERPRETIVE STATEMENTS: Sinus bradycardia Nonspecific T wave abnormality Prolonged QT Abnormal ECG Compared to ECG 12/01/2020 16:33:32 T-wave abnormality now present Prolonged QT interval now present Sinus rhythm no longer present Myocardial infarct finding no longer present Electronically Signed On 10-11-23 17:20:39 SURVEILLANCE SENSOR OFFICER by Ryan Quintanilla
[2023-10-12] MEDS ORDERED: NA CHLORIDE 0.9% 1,000 ML ONE (07:06)
[2023-10-12] MEDS ORDERED: propofoL 200 MG/20 ML VIAL IV ONE (07:17)
[2023-10-12] MEDS ORDERED: LIDOCAINE HCL/EPINEPHRINE 20 ML MDV ONE (07:19)
[2023-10-12] MEDS ORDERED: BUPIVACAINE 0.25% PF 10 ML VIAL ONE (07:19)
[2023-10-12] MEDS ORDERED: ONDANSETRON 4 MG/2 ML VIAL ONE (07:22)
[2023-10-12] MEDS ORDERED: EPHEDRINE SULF 50 MG/ML VIAL ONE (08:16)
[2023-10-12 09:31] VITALS: BP 115/73; TEMP 97.7; O2SAT 95
[2023-10-12] MEDS ORDERED: Mastisol Adhesive Liq ONE (10:48)
--- NOTE | 2023-10-13 21:34 | OP ---
Date of Procedure: 10/12/2023 Surgeon: MICHAEL LASSITER Preoperative Diagnoses: 1.Obstructive sleep apnea, intolerant to CPAP therapy. 2.Ankyloglossia. Postoperative Diagnoses: 1.Obstructive sleep apnea, intolerant to CPAP therapy. 2.Ankyloglossia. Procedures: 1.Drug-induced sleep endoscopy. 2.Frenulectomy. Anesthesia: General. IV sedation was administered. I also infiltrated approximately 3 mL at the li ngual frenulum incision site. Estimated Blood Loss: Scant, less than 1 mL. Specimens: None. Findings: Velopharyngeal closure, anterior/posterior, predominant with less than 75% of lateral velo pharyngeal wall collapse and no evidence of concentric collapse; tethered grade 3+/4 lingual frenulum . Complications: None. Disposition: Stable. The patient tolerated the procedure well. Indications For Procedure: The patient is a pleasant 63-year-old male, who presented to my outpatien t clinic with chronic obstructive sleep apnea, who was very intolerant of the mask and had used the m ass with different sizes including full-face mask and nasal pillows and he was only able to get utmos t 4 hours of sleep at a time. He also reported daytime fatigue and he frequently napped during the d ay. Due to decreased quality of life, we felt that the patient met criteria for the Inspire implant, thus these were indications to bring the patient to operative suite for the above-mentioned procedur e. He also had a tethered lingual frenulum, which would inhibit tongue protrusion and stiffening. T hus, these were indications to perform the frenulectomy. Description Of Procedure: The patient was transferred from the preoperative holding area to the oper ative suite by Department of Anesthesia, placed on the operating table supine and sedated in the norm al fashion. Once the patient was sedated, a flexible endoscope was introduced into the right nasal c avity and directed along the floor and slightly elevated the scope to the velopharynx. We positioned the scope superiorly so that we could adequately see the velopharynx and the closure. The patient h ad predominant anterior/posterior velopharyngeal closure with no concentric collapse and less than 75 % lateral collapse. Once we were satisfied with the visual feedback after examining for about 2 to 5 minutes, we then withdrew the scope completely. Next, I infiltrated approximately 3 mL of 1% lidocaine with 1:100,000 epinephrine at the lingual fren ulum incision site. I then removed a wedge of mucosa utilizing curved iris scissors and soft tissue forceps. I had to take some redundant mucosa anteriorly so that he would not have a pointed tong. I then reapproximated the mucosa with 5-0 chromic gut suture in a continuous running locking fashion. The patient tolerated the procedure well. The patient was then transferred back to Department of Anesthesia in stable condition. He was awaken ed and transferred to postoperative care unit and discharged home in stable condition. He will follo w up soon for scheduling of Inspire implant as he meets criteria for the hypoglossal nerve stimulator base d on today's exam. JOS/OMAR Voice ID: [id number] Report ID: [id number]
== END 2023-10-12 09:20 | disposition home or self-care (01) ==
LOC: OR 06:16
PROVIDERS: ATTEND Otolaryngology Facial Plastic Surgery
PROC: 0CJY8ZZ Inspection of Mouth and Throat, Via Natural or Artificial Opening Endoscopic (ICD-10-PCS; principal; 2023-10-12 07:30)
PROC: 0CB7XZZ Excision of Tongue, External Approach (ICD-10-PCS; 2023-10-12 07:30)
DX: G47.33 Obstructive sleep apnea (adult) (pediatric) (principal); Q38.1 Ankyloglossia; E11.9 Type 2 diabetes mellitus without complications; I10 Essential (primary) hypertension; I48.91 Unspecified atrial fibrillation; K21.9 Gastro-esophageal reflux disease without esophagitis; E66.9 Obesity, unspecified; Z68.35 Body mass index [BMI] 35.0-35.9, adult
CPT/HCPCS: 93005; 85025; 80048; 36415; 85610; 82947; 85730; 42975; 41115; J2704; J2405; J7030

== ENCOUNTER 2023-11-23 08:35 | Day surgery (SDC) | payer OTHER ==
[2023-11-22 16:26] LABS: Absolute Lymphocytes (CBC) 9.6 K/uL (0.7-4.9); Hematocrit 41.1 % (39.6-49.0); Lymphocytes % 68.5 % (15.3-44.8); MPV 9.6 fL (7.6-11.3); Platelets 183 thou/uL (152-406); RBC Red Blood Cell Count 4.42 M/uL (4.33-5.43)
[2023-11-22 16:37] LABS: Protime INR 1.05
[2023-11-22 16:41] LABS: Potassium 3.8 mEq/L (3.5-5.1)
[2023-11-22 16:59] LABS: White Blood Cell Scan OK (OK)
[2023-11-22 17:00] LABS: Blood Morphology Comment NOT SEEN (NOT SEEN); Platelet Estimate ADEQ
[2023-11-23] MEDS ORDERED: CEFAZOLIN SODIUM 1 GM/VIAL ONE ×2 (09:00→10:31)
[2023-11-23] MEDS ORDERED: NA CHLORIDE 0.9% 1,000 ML ONE (09:00)
[2023-11-23] MEDS ORDERED: ONDANSETRON 4 MG/2 ML VIAL ONE ×2 (09:46→14:40)
[2023-11-23] MEDS ORDERED: LIDOCAINE 2% MPF 5 ML VIAL ONE (09:46)
[2023-11-23] MEDS ORDERED: propofoL 200 MG/20 ML VIAL IV ONE (09:46)
[2023-11-23] MEDS ORDERED: MIDAZOLAM HCL 2 MG/2 ML INJ ONE (09:46)
[2023-11-23] MEDS ORDERED: FENTANYL CITR 100 MCG/2 ML ONE (09:46)
[2023-11-23] MEDS ORDERED: HYDROMORPHONE HCL 2 MG/ML inj ONE (09:50)
[2023-11-23] MEDS ORDERED: SUCCINYLCHOLINE 20 MG/ML (10 ML) IV ONE (09:50)
[2023-11-23] MEDS ORDERED: LIDOCAINE HCL/EPINEPHRINE 20 ML MDV ONE (09:59)
[2023-11-23] MEDS ORDERED: LANO/MINERAL OIL/PETRO 3.5 GM ONE (10:02)
[2023-11-23] MEDS ORDERED: ROCURONIUM 50 MG/5 ML VIAL IV ONE (10:17)
[2023-11-23] MEDS ORDERED: EPHEDRINE SULF 50 MG/ML VIAL ONE (10:34)
[2023-11-23] MEDS ORDERED: Mastisol Adhesive Liq ONE (13:20)
--- NOTE | 2023-11-23 14:36 | RAD REPORT ---
EXAM DESCRIPTION: RAD - Neck Soft Tissue - 11/23/2023 2:21 pm CLINICAL HISTORY: S/P INSPIRE IMPLANT R/O PNEUMOTHORAX COMPARISON: Chest Single View dated 11/23/2023 FINDINGS/IMPRESSION: Single lateral view obtained with soft tissue swelling in the superior anterior neck soft tissues. This is presumably postsurgical. An electrode is present.
--- NOTE | 2023-11-23 14:37 | RAD REPORT ---
EXAM DESCRIPTION: RAD - Chest Single View - 11/23/2023 2:21 pm CLINICAL HISTORY: S/P INSPIRE IMPLANT R/O PNEUMOTHORAX COMPARISON: Chest Single View dated 04/17/2021; Abdomen 1 View (KUB) dated 04/09/2021; Chest Single Vi ew dated 12/01/2020; Chest Pa And Lat (2 Views) dated 12/11/2019 FINDINGS: Lines: Battery pack overlies the right hemithorax. Lungs: New linear left mid lung opacity likely reflecting scarring or subsegmental atelectasis. Overa ll the lung volumes are low. Pleural: Upper limits of normal which may be due to portable technique . Cardiac: The heart size is within normal limits. Mediastinum: Within normal limits. Bones: No acute fractures. Other: None IMPRESSION: No pneumothorax. Linear opacity in left mid lung with overall low lung volumes likely re flecting atelectasis or scarring.
[2023-11-23 17:35] VITALS: BP 123/72; TEMP 97; O2SAT 93
--- NOTE | 2023-11-24 14:14 | OP ---
Date of Procedure: 11/23/2023 Surgeon: MICHAEL LASSITER Preoperative Diagnoses: 1.Jublfqsu-dv-yedhpk obstructive sleep apnea with positive airway pressure intolerance. 2.BMI between 36.0-36.9. Postoperative Diagnoses: 1.Jgpeaved-ex-vemoao obstructive sleep apnea with positive airway pressure intolerance. 2.BMI between 36.0-36.9. Procedures: 12th cranial nerve hypoglossal stimulation implant with placement of chest wall respirat ory sensor. Anesthesia: General endotracheal anesthesia was administered. Also, infiltrated approximately 10 mL of 1% lidocaine with 1:100,000 epinephrine at a right upper neck and right upper chest incision site s. Estimated Blood Loss: Approximately 20-30 mL. Specimens: None. Findings: Excellent visualization of all branches of the hypoglossal nerve and hyoglossus nerve. Re dundant lipomatous tissue, right upper neck and right upper chest. Complications: None. Disposition: Stable. The patient tolerated the procedure well. Indication For Procedure: Patient is a 63-year-old male with a longstanding history of tytvhisz-dt-q evere obstructive sleep apnea with associated BMI between 36.0 and 36.9, who presented to my outpatie nt clinic due to intolerance of his nightly CPAP, in fact, he has only been able to use it at most 4 hours nightly. This was resulting in chronic daytime fatigue and angina pectoris. These were indica tions to bring the patient to operative suite for the above-mentioned procedures. The patient has pa ssed the clinical, polysomnographic, and endoscopic screening criteria, and also received a cardiac c learance from Dr. Mirza and presents today for the implant. The patient's obstructive sleep apnea is associated with a BMI diagnosis of 36.8. Description Of Procedure: The patient was brought to the operating room and was anesthetized via gen eral endotracheal anesthesia without complication. A shoulder roll was placed. The patient was prep ped and draped in the usual sterile fashion after I infiltrated the right upper neck and right upper chest with 10 mL of 1% lidocaine with 1:100,000 epinephrine. The head was turned to the left and miguel or to prepping and draping, the electrodes were placed in the genioglossus and hyoglossus muscles and connected to the nerve integrity monitoring system for intraoperative nerve monitoring. A modified submandibular incision was made in the right upper neck approximately 2 cm below the amanda ble. Dissection was carried down through the subcutaneous tissue and platysma. The anterior/inferio r border of the submandibular gland was identified as well as the digastric tendon, although the tend on was thin. Submandibular gland and the overlying fascia with a marginal mandibular nerve were retr acted posteriorly. The digastric tendon was retracted anteriorly and medially. Dissection continued down to the digastric triangle and the posterior border of the mylohyoid muscle was freed up posteri macie and retracted anteriorly. With balance retraction, the hypoglossal nerve was identified in its usual fashion and was dissected up toward the floor of the mouth. The overlying vein was clamped, cu t, and ligated with 3-0 stick ties. The superior and posterior branches innervating the hyoglossus m uscle were identified using the nerve stimulator and anatomical cues. The cuff electrode for the hyp oglossal nerve stimulator then was placed distally to these branches innervating genioglossus, transv erse, and vertical muscles as well as the branch of C1. The stimulation lead was anchored to the dig astric tendon using two 3-0 silk sutures and the lead body slack between the cuff and the anchor gent ly tucked deep to the submandibular gland. Next, a second 5 cm incision was made in the right upper chest over the second intercostal space appr oximately 3 cm lateral to the sternal margin. Dissection was carried down through the skin and subcu taneous tissue to the fascia of the pectorals muscle. An inferior pocket for the generator was creat ed deep to the subcutaneous layer and superficial to the fascia of the pectoralis muscle. The pector als major fascia was dissected directly over the second intercostal space with subsequent blunt disse ction through the muscle. The pectoralis major muscle was then retracted to expose the fatty layer j ust superficial to the external intercostals. The fatty layer was carefully swept away with Kittner pledgets to expose the external intercostal muscles. A throw-down base knot was placed to the fascia of the external intercostals just lateral to the anterior external membrane using a 3-0 silk suture. Fasciotomy through the external intercostals was performed approximately 5 mm lateral to suture kno t and respiratory sensor lead was advanced with a sensor facing the pleura into the inner fascial spa ce between external and internal intercostals. The primary anchor was suture placed with 3-0 silk devries ture on the external intercostals. The secondary anchor was sutured with 3-0 silk to the pectorals m ajor, allowing adequate slack between the anchors. The stimulation lead was then tunneled in a subplatysmal plane with blunt dissection under direct vis ualization utilizing tonsillar hemostat, bisector, and the tunneling device. It was brought over the clavicle and then brought into the subclavicular pocket where both stimulation lead and respiratory sensing lead were connected to the implantable pulse generator, using a 2 person, 3-handed approach. The implantable pulse generator was placed in the subclavicular pocket ensuring lead body was deep to the generator and secured with the use of air knots to the pectoralis fascia using 2.0 silk sutures. Diagnostic evaluation confirmed good placement of the stimulation cuff was demonstrated by activati on of the genioglossus, transverse, and vertical muscles, resulting in unhindered stiffened tongue pr otrusion, confirmed visually. Diagnostic evaluation also confirmed good respiratory sensor placement as demonstrated by the sensing waveform with good rise and fall associated with patient respirations . All wounds were thoroughly irrigated and closed in 3 layers with deep 3-0 Vicryl sutures and dermal a nd subcuticular 4-0 Monocryl in a continuous running fashion. Mastisol and Steri-Strips were applied followed by pressure dressings. Patient was then awakened, extubated, and transferred to the [facility] room in stable condition. A stat PA chest and lateral neck x-ray did not demonstrate any evidence of pneumothorax and mild right upper neck soft tissue swelling and adequate placement of the nerve s timulator, electrode, and breathing sensor electrode. Patient was discharged home on antibiotic and analgesic medication and will follow up in 5-7 days for wound check. I was present for and performed the entire procedure. JOS/GRIFFINL Voice ID: [id number] Report ID: [id number]
== END 2023-11-23 16:33 | disposition home or self-care (01) ==
LOC: OR 08:35
PROVIDERS: ATTEND Otolaryngology Facial Plastic Surgery
PROC: 0JH63MZ Insertion of Stimulator Generator into Chest Subcutaneous Tissue and Fascia, Percutaneous Approach (ICD-10-PCS; principal; 2023-11-23 10:15)
DX: G47.33 Obstructive sleep apnea (adult) (pediatric) (principal); Z68.36 Body mass index [BMI] 36.0-36.9, adult
CPT/HCPCS: 85025; 80048; 36415; 85610; 82947 ×2; 85730; 71045; 70360; 64582; J2704; J2001; J2250; J1170; J3010; J2405 ×2; J7030; J0690 ×2

== ENCOUNTER 2024-03-02 12:11 | Emergency (ER) | payer OTHER ==
--- NOTE | 2024-03-02 13:38 | RAD REPORT ---
EXAM DESCRIPTION: US - Extrem Venous W Compress Kush - 03/02/2024 1:20 pm CLINICAL HISTORY: Pain;Swelling COMPARISON: No comparisons TECHNIQUE: Real-time sonographic evaluation of the lower extremity deep venous systems was performed using color Doppler, grayscale, and compression. FINDINGS: Bilateral lower extremities. Normal compressibility, flow augmentation, phasic flow and spontaneous flow is identified in both the left and right lower extremity deep venous systems. No intraluminal filling defects seen. IMPRESSION: No DVT in either lower extremity.
--- NOTE | 2024-03-02 13:57 | RAD REPORT ---
EXAM DESCRIPTION: RAD - Chest Single View - 03/02/2024 1:48 pm CLINICAL HISTORY: DYSPNEA COMPARISON: Chest Single View dated 11/23/2023; Chest Single View dated 04/17/2021; Abdomen 1 View (K UB) dated 04/09/2021; Chest Single View dated 12/01/2020 FINDINGS: Lines: Vagal nerve stimulator overlying the right hemithorax. Lungs: No evidence of edema or pneumonia. Pleural: No significant pleural effusions or pneumothorax. Cardiac: The heart size is within normal limits. Mediastinum: Within normal limits. Bones: No acute fractures. Other: None IMPRESSION: No acute cardiopulmonary disease.
[2024-03-02] MEDS ORDERED: NA CHLORIDE 0.9% 1,000 ML ONE (14:12)
[2024-03-02] MEDS ORDERED: ONDANSETRON 4 MG/2 ML VIAL ONE (14:51)
[2024-03-02] MEDS ORDERED: MORPHINE 4 MG/ML SYR ONE (14:51)
[2024-03-02 15:02] LABS: Absolute Basophils 0.1 K/uL (0-0.5); Absolute Eosinophils 0.1 K/uL (0-0.5); Absolute Lymphocytes (CBC) 8.3 K/uL (0.7-4.9); Absolute Monocytes 0.6 K/uL (0.1-1.3); Absolute Neutrophil 3.5 K/uL (1.8-8.0); Basophils % 0.7 % (0-1.3); Eosinophils % 1.2 % (0-4.4); Hematocrit 41.3 % (39.6-49.0); Hemoglobin 13.9 g/dL (13.6-17.9); Lymphocytes % 65.5 % (15.3-44.8); MCHC 33.7 g/dL (32.0-36.0); MCV 91.8 fL (80-100); MPV 9.1 fL (7.6-11.3); Monocytes % 4.9 % (3.3-12.3); Neutrophils % 27.7 % (41.7-73.7); Nucleated Red Blood Cells % 0.2 % (0-0); Platelets 145 thou/uL (152-406); Red Cell Distribution Width 13.5 % (12.1-15.2)
[2024-03-02 15:03] LABS: PT Prothrombin Time 13.7 SECONDS (9.5-12.5); Protime INR 1.25
[2024-03-02 15:19] LABS: ALT/SGPT 26 U/L (16-61); AST/SGOT 18 U/L (15-37); Albumin 3.4 g/dL (3.4-5.0); Albumin/Globulin Ratio 1.1 (1.1-1.8); Alkaline Phosphatase 96 U/L (45-117); Anion Gap 6.9 mEq/L (5.0-15.0); BUN Blood Urea Nitrogen 20 mg/dL (7-18); Bicarbonate 29 mEq/L (21-32); Bilirubin Direct 0.2 mg/dL (0-0.2); Bilirubin Indirect, Calculated 0.5 mg/dL (0.2-0.8); Bilirubin Total 0.7 mg/dL (0.2-1.0); Globulin 3.2 g/dL (2.3-3.5); Glomerular Filtration Rate 95 ml/min (=/>90); Glucose Level 110 mg/dL (74-106); Lipase 30 U/L (13-75); Magnesium 2.1 mg/dL (1.6-2.4); NT PRO-BNP 110 pg/mL (<125); Potassium 3.9 mEq/L (3.5-5.1); Protein, Total 6.6 g/dL (6.4-8.2); Sodium Level 140 mEq/L (136-145)
[2024-03-02 15:21] LABS: Troponin High Sensitivity < 3.0 pg/mL (<58.9)
--- NOTE | 2024-03-02 15:59 | ER ---
Nurse's Notes [facility] Name: Moe Rivero Age: 63 yrs Sex: Male : 1960 Arrival Date: 03/02/2024 Time: 12:11 Bed 17 Private MD: Diagnosis: Unspecified symptoms and signs involving the musculoskeletal system-left calf, soleus pain , tear Presentation: 03/02 12:34 Chief complaint: Patient states: Woke up with lower leg swelling/pain "feels tight". nj1 Coronavirus screen: Vaccine status: Patient reports receiving the 2nd dose of the covid vaccine. Ebola Screen: Patient denies travel to an Ebola-affected area in the 21 days before illness onset. Initial Sepsis Screen: Does the patient meet any 2 criteria? No. Patient's initial sepsis screen is negative. Does the patient have a suspected source of infection? No. Patient's initial sepsis screen is negative. Risk Assessment: Do you want to hurt yourself or someone else? Patient reports no desire to harm self or others. Onset of symptoms was March 02, 2024. 12:34 Method Of Arrival: Ambulatory [facility] 12:34 Acuity: SUZANNE 3 nj1 Triage Assessment: 12:38 General: Appears in no apparent distress. uncomfortable, Behavior is calm, cooperative, nj1 appropriate for age. Historical: - Allergies: 12:37 Clindamycin; nj1 - PMHx: 12:37 Diabetes - NIDDM; Hyperlipidemia; Hypertension; Sleep apnea; nj1 - PSHx: 12:37 Inspire implant (Unknown); nj1 - Immunization history:: Client reports receiving the 2nd dose of the Covid vaccine. - Infectious Disease History:: Denies. - Social history:: Smoking status: Patient denies any tobacco usage or history of. Screenin:59 [facility] ED Fall Risk Assessment (Adult) History of falling in the last 3 months, ph including since admission No falls in past 3 months (0 pts) Confusion or Disorientation No (0 pts) Intoxicated or Sedated No (0 pts) Impaired Gait No (0 pts) Mobility Assist Device Used No (0 pt) Altered Elimination No (0 pt) Score/Fall Risk Level 0 - 2 = Low Risk Oriented to surroundings, Maintained a safe environment, Hourly rounding (assess needs \\T\\ fall precautionary measures) done. Abuse screen: Denies threats or abuse. Denies injuries from another. Nutritional screening: No deficits noted. Tuberculosis screening: No symptoms or risk factors identified. Assessment: 14:29 General: Appears in no apparent distress. uncomfortable, Behavior is calm, cooperative, ph appropriate for age. Pain: Complains of pain in left calf and left Achilles. Neuro: Level of Consciousness is awake, alert, obeys commands, Oriented to person, place, time, situation. Cardiovascular: Denies chest pain, lightheadedness, Capillary refill < 3 seconds in bilateral Patient's skin is warm and dry. Edema is 2+ to left midcalf, left ankle and left foot non-pitting. Respiratory: Airway is patent Respiratory effort is even, unlabored, Respiratory pattern is regular, symmetrical, Denies shortness of breath. GI: Patient currently denies abdominal pain, diarrhea, nausea, vomiting. Derm: Skin is pink, warm \\T\\ dry. Musculoskeletal: Circulation, motion, and sensation intact. 17:10 Reassessment: Patient appears in no apparent distress at this time. Patient and/or ph family updated on plan of care and expected duration. Pain level reassessed. Patient is alert, oriented x 3, equal unlabored respirations, skin warm/dry/pink. Tomi wrap placed to L knee and calve, walking boot to L foot, pt declined crutches, states that they have a set of crutches. Vital Signs: 12:34 BP 127 / 77; Pulse 57; Resp 18; Temp 97.6(TE); Pulse Ox 97% on R/A; Weight 104.33 kg; nj1 Height 5 ft. 9 in. ; Pain 7/10; 15:04 BP 131 / 77; Pulse 51; Resp 18; Pulse Ox 99% ; ph 16:30 BP 134 / 76; Pulse 52; Resp 18; Temp 97.9; Pulse Ox 100% on R/A; ph 12:34 Body Mass Index 33.97 (104.33 kg, 175.26 cm) nj1 12:34 Pain Scale: Adult nj1 Vitals: 15:04 Cardiac Rhythm Assessment Sinus fady. ph ED Course: 12:15 Patient arrived in ED. ra3 12:35 Richie Dorado MD is Attending Physician. tommie 12:37 Triage completed. nj1 12:38 Arm band placed on right wrist. nj1 13:12 Nikky Benavides, RN is Primary Nurse. ph 13:22 US Extremity Venous W Compression Kush In Process Unspecified. EDMS 13:50 XRAY Chest (1 view) In Process Unspecified. EDMS 14:30 Initial lab(s) drawn, by me, sent to lab. Inserted saline lock: 20 gauge in right ph antecubital area, using aseptic technique. Blood collected. 14:41 EKG done, by ED staff, reviewed by Richie Dorado MD. hb 15:00 Patient has correct armband on for positive identification. Bed in low position. Call ph light in reach. Side rails up X2. Provided Education on: On estimated time for test results and use of call light. Client placed on continuous cardiac and pulse oximetry monitoring. NIBP monitoring applied. awake overnight monitor on. Door closed. Noise minimized. Warm blanket given. 15:03 Basic Metabolic Panel Sent. ph 15:03 CBC with Diff Sent. ph 15:03 LFT's Sent. ph 15:03 Magnesium Sent. ph 15:03 NT PRO-BNP Sent. ph 15:04 Troponin HS Sent. ph 15:57 Berry Xavier MD is Referral Physician. tommie 16:45 Tib Fib Left XRAY In Process Unspecified. EDMS 17:09 No provider procedures requiring assistance completed. IV discontinued, intact, ph bleeding controlled, No redness/swelling at site. Pressure dressing applied. Tomi wrap to left knee 3D boot applied to left foot. Administered Medications: 15:03 Drug: morphine IVP or IV 4 mg IVP once over 4 mins Route: IVP; Infused Over: 4 mins; ph Site: right antecubital; 15:30 Follow up: Response: No adverse reaction; Pain is decreased; RASS: Drowsy (-1) ph 15:03 Drug: Ondansetron IVP 4 mg IVP once; over 2 minutes Route: IVP; Site: right antecubital;ph 16:32 Follow up: Response: No adverse reaction ph 16:32 Not Given (Other Intervention Used): ns 0.9% 1000 ml IV at 125 ml/hr continuous ph 16:32 Drug: Ketorolac IVP 30 mg IVP once Route: IVP; Site: right antecubital; ph 16:33 Follow up: Response: No adverse reaction ph 16:32 Drug: [place] PO 10 mg-325 mg 1 tabs PO once Route: PO; ph 16:33 Follow up: Response: No adverse reaction; Medication administered at discharge. ph Medication: 15:00 VIS not applicable for this client. ph Outcome: 15:58 Discharge ordered by . tommie 17:10 Discharged to home via wheelchair, with family, ph 17:10 Condition: good 17:10 Discharge instructions given to patient, Instructed on discharge instructions, follow up and referral plans. medication usage, Demonstrated understanding of instructions, follow-up care, medications, Prescriptions given X 3, 17:12 Patient left the ED. ph Signatures: Dispatcher [employer] EDMS Richie Dorado MD MD cha Hall, Patricia RN RN Adeline Reynolds RN RN Dana Mendez RN RN nj1 Roxy Banks ra3 Corrections: (The following items were deleted from the chart) 12:39 12:34 Pulse 57bpm; Resp 18bpm; Pulse Ox 97% RA; Temp 97.6F Temporal; 104.33 kg; Height nj1 5 ft. 9 in.; BMI: 33.9; Pain 7/10, Adult; nj1 15:02 14:29 Pain: Complains of pain in mouth ph ph 15:02 14:29 Cardiovascular: Capillary refill < 3 seconds in bilateral Patient's skin is warm ph and dry. ph 15:02 14:29 Respiratory: Airway is patent Respiratory effort is even, unlabored, Respiratory ph pattern is regular, symmetrical, ph 15:02 14:29 GI: Reports nausea, Patient currently denies abdominal pain, diarrhea, vomiting, ph ph
--- NOTE | 2024-03-02 15:59 | EDPHYS ---
Physician Documentation [facility] Name: Moe Rivero Age: 63 yrs Sex: Male : 1960 Arrival Date: 03/02/2024 Time: 12:11 Bed 17 Private MD: STACEY Physician Richie Dorado HPI: 03/02 15:51 This 63 yrs old Male presents to ER via Ambulatory with complaints of Leg tommie Swelling. 15:51 The patient presents with decreased range of motion, pain. The complaints affect the tommie lateral aspect of left calf, left calf and left waite. Context: resulted from an unknown cause, the patient can partially bear weight. Historical: - Allergies: 12:37 Clindamycin; nj1 - PMHx: 12:37 Diabetes - NIDDM; Hyperlipidemia; Hypertension; Sleep apnea; nj1 - PSHx: 12:37 Inspire implant (Unknown); nj1 - Immunization history:: Client reports receiving the 2nd dose of the Covid vaccine. - Infectious Disease History:: Denies. - Social history:: Smoking status: Patient denies any tobacco usage or history of. ROS: 15:52 Constitutional: Negative for fever, chills, and weight loss, Eyes: Negative for injury, tommie pain, redness, and discharge, ENT: Negative for injury, pain, and discharge, Neck: Negative for injury, pain, and swelling, Cardiovascular: Negative for chest pain, palpitations, and edema, Respiratory: Negative for shortness of breath, cough, wheezing, and pleuritic chest pain, Abdomen/GI: Negative for abdominal pain, nausea, vomiting, diarrhea, and constipation, Back: Negative for injury and pain, : Negative for injury, bleeding, discharge, and swelling, Skin: Negative for injury, rash, and discoloration, Neuro: Negative for headache, weakness, numbness, tingling, and seizure, Psych: Negative for depression, anxiety, suicide ideation, homicidal ideation, and hallucinations, Allergy/Immunology: Negative for hives, rash, and allergies, Endocrine: Negative for neck swelling, polydipsia, polyuria, polyphagia, and marked weight changes, Hematologic/Lymphatic: Negative for swollen nodes, abnormal bleeding, and unusual bruising, 15:52 MS/extremity: Positive for decreased range of motion, pain, swelling, tenderness, of the lateral aspect of left calf, left calf, medial aspect of left calf and left waite, Exam: 15:52 Constitutional: This is a well developed, well nourished patient who is awake, alert, tommie and in no acute distress. Head/Face: Normocephalic, atraumatic. Eyes: Pupils equal round and reactive to light, extra-ocular motions intact. Lids and lashes normal. Conjunctiva and sclera are non-icteric and not injected. Cornea within normal limits. Periorbital areas with no swelling, redness, or edema. ENT: Nares patent. No nasal discharge, no septal abnormalities noted. Tympanic membranes are normal and external auditory canals are clear. Oropharynx with no redness, swelling, or masses, exudates, or evidence of obstruction, uvula midline. Mucous membranes moist. Neck: Trachea midline, no thyromegaly or masses palpated, and no cervical lymphadenopathy. Supple, full range of motion without nuchal rigidity, or vertebral point tenderness. No Meningismus. Chest/axilla: Normal chest wall appearance and motion. Nontender with no deformity. No lesions are appreciated. Cardiovascular: Regular rate and rhythm with a normal S1 and S2. No gallops, murmurs, or rubs. Normal PMI, no JVD. No pulse deficits. Respiratory: Lungs have equal breath sounds bilaterally, clear to auscultation and percussion. No rales, rhonchi or wheezes noted. No increased work of breathing, no retractions or nasal flaring. Abdomen/GI: Soft, non-tender, with normal bowel sounds. No distension or tympany. No guarding or rebound. No evidence of tenderness throughout. Back: No spinal tenderness. No costovertebral tenderness. Full range of motion. Male : Normal genitalia with no discharge or lesions. Skin: Warm, dry with normal turgor. Normal color with no rashes, no lesions, and no evidence of cellulitis. Neuro: Awake and alert, GCS 15, oriented to person, place, time, and situation. Cranial nerves II-XII grossly intact. Motor strength 5/5 in all extremities. Sensory grossly intact. Cerebellar exam normal. Normal gait. Psych: Awake, alert, with orientation to person, place and time. Behavior, mood, and affect are within normal limits. 15:52 ECG was reviewed by the Attending Physician. 15:52 Musculoskeletal/extremity: Extremities: ROM: limited active range of motion due to pain, limited passive range of motion due to pain, Circulation is intact in all extremities. Sensation intact. Compartment Syndrome exam of affected extremity: is normal. DVT Exam: negative Homans' sign noted on exam, no appreciated bluish discoloration, no erythema, no increased warmth, pain, swelling, tenderness, Vital Signs: 12:34 BP 127 / 77; Pulse 57; Resp 18; Temp 97.6(TE); Pulse Ox 97% on R/A; Weight 104.33 kg; nj1 Height 5 ft. 9 in. ; Pain 7/10; 15:04 BP 131 / 77; Pulse 51; Resp 18; Pulse Ox 99% ; ph 16:30 BP 134 / 76; Pulse 52; Resp 18; Temp 97.9; Pulse Ox 100% on R/A; ph 12:34 Body Mass Index 33.97 (104.33 kg, 175.26 cm) nj 12:34 Pain Scale: Adult nj1 MDM: 12:[address] [facility] 15:55 Differential diagnosis: closed fracture, contusion, abrasion. Data reviewed: vital [facility] signs, nurses notes, lab test result(s), EKG, radiologic studies, doppler, plain films, ultrasound. Consideration of Admission/Observation Escalation of care including admission/observation considered. I considered the following discharge prescriptions or medication management in the emergency department Medications were administered in the Emergency Department. See MAR. Test considered but Not performed: MRI: no mri available . 03/02 12:36 Order name: Basic Metabolic Panel; Complete Time: 15:50 [facility] 03/02 12:36 Order name: CBC with Diff; Complete Time: 15:16 [facility] 03/02 12:36 Order name: LFT's; Complete Time: 15:50 [facility] 03/02 12:36 Order name: Magnesium; Complete Time: 15:50 [facility] 03/02 12:36 Order name: NT PRO-BNP; Complete Time: 15:50 [facility] 03/02 12:36 Order name: PT-INR; Complete Time: 15:16 [facility] 03/02 12:36 Order name: Troponin HS; Complete Time: 15:50 [facility] 03/02 12:36 Order name: Lipase; Complete Time: 15:50 [facility] 03/02 12:36 Order name: XRAY Chest (1 view); Complete Time: 15:16 [facility] 03/02 12:36 Order name: US Extremity Venous W Compression Kush; Complete Time: 15:16 [facility] 03/02 15:45 Order name: Tib Fib Left XRAY mc5 03/02 12:36 Order name: EKG; Complete Time: 12:37 [facility] 03/02 12:36 Order name: Cardiac monitoring; Complete Time: 15:03 [facility] 03/02 12:36 Order name: EKG - Nurse/Tech; Complete Time: 15:03 [facility] 03/02 12:36 Order name: IV Saline Lock; Complete Time: 15:03 [facility] 03/02 12:36 Order name: Labs collected and sent; Complete Time: 15:03 [facility] 03/02 12:36 Order name: O2 Per Protocol; Complete Time: 15:03 [facility] 03/02 12:36 Order name: O2 Sat Monitoring; Complete Time: 15: [facility] 03/02 15:51 Order name: Tomi Wrap; Complete Time: 17:08 [facility] 03/02 15:51 Order name: Ice pack; Complete Time: 17:08 [facility] 03/02 15:51 Order name: Crutches; Complete Time: 17: [facility] 03/02 15:51 Order name: Walking boot; Complete Time: 17:09 [facility] EC:52 Rate is 53 beats/min. Rhythm is regular. QRS [place] is Normal. [place] interval is normal. QRS tommie interval is normal. QT interval is normal. No Q waves. T waves are Inverted in lead III. No ST changes noted. Clinical impression: NSR w/ Non-specific ST/T Changes. Interpreted by me. Reviewed by me. Administered Medications: 15:03 Drug: morphine IVP or IV 4 mg IVP once over 4 mins Route: IVP; Infused Over: 4 mins; ph Site: right antecubital; 15:30 Follow up: Response: No adverse reaction; Pain is decreased; RASS: Drowsy (-1) ph 15:03 Drug: Ondansetron IVP 4 mg IVP once; over 2 minutes Route: IVP; Site: right antecubital;ph 16:32 Follow up: Response: No adverse reaction ph 16:32 Not Given (Other Intervention Used): ns 0.9% 1000 ml IV at 125 ml/hr continuous ph 16:32 Drug: Ketorolac IVP 30 mg IVP once Route: IVP; Site: right antecubital; ph 16:33 Follow up: Response: No adverse reaction ph 16:32 Drug: Halbur PO 10 mg-325 mg 1 tabs PO once Route: PO; ph 16:33 Follow up: Response: No adverse reaction; Medication administered at discharge. ph Disposition Summary: 03/02/24 15:58 Discharge Ordered Notes: Location: Home tommie Problem: new tommie Symptoms: have improved tommie Condition: Stable tommie Diagnosis - Unspecified symptoms and signs involving the musculoskeletal system - left calf, tommie soleus pain , tear Followup: tommie - With: Private Physician - When: 2 - 3 days - Reason: Recheck today's complaints, Continuance of care, Re-evaluation by your physician Followup: tommie - With: Berry Xavier MD - When: 2 - 3 days - Reason: Recheck today's complaints, Continuance of care, Re-evaluation by your physician Discharge Instructions: - Discharge Summary Sheet [facility] - Muscle Strain tommie - Muscle Strain, [id number] [facility] - Medial Head Gastrocnemius Tear [facility] Forms: - Medication Reconciliation Form [facility] - Thank You Letter [facility] - Antibiotic Education [facility] - Prescription Opioid Use [facility] - Patient Portal Instructions [facility] - Leadership Thank You Letter [facility] Prescriptions: - acetaminophen-codeine 300-30 mg Oral tablet - take 2 tablet ORAL route every 6 hours; 20 tablet; Refills: 0, Product [facility] Selection Permitted - diclofenac sodium 50 mg Oral tablet, delayed release (enteric coated) - take 1 tablet ORAL route every 12 hours; 20 tablet; Refills: 0, Product [facility] Selection Permitted - Valium 5 mg Oral Tablet - take 1 tablet ORAL route every 8 hours As needed; 20 tablet; Refills: 0, [facility] Product Selection Permitted Signatures: Dispatcher [employer] EDRichie Crenshaw MD MD cha Hall, Patricia, RN RN Dana Mendez RN RN nj1 Corrections: (The following items were deleted from the chart) 12:37 12:37 BASIC METABOLIC PANEL+C.LAB.BRZ ordered. EDMS EDMS 12:37 12:37 CBC+H.LAB.BRZ ordered. EDMS EDMS 12:37 12:37 HEPATIC FUNCTION+C.LAB.BRZ ordered. EDMS EDMS 12:37 12:37 MAGNESIUM+C.LAB.BRZ ordered. EDMS EDMS 12:37 12:37 PROBNP+C.LAB.BRZ ordered. EDMS EDMS 12:37 12:37 PROTIME (+INR)+COAG.LAB.BRZ ordered. EDMS EDMS 12:37 12:37 Troponin High Sensitivity+C.LAB.BRZ ordered. EDMS EDMS 12:37 12:37 LIPASE+C.LAB.BRZ ordered. EDMS EDMS 12:37 12:37 Urinalysis+U.LAB.BRZ ordered. EDMS EDMS
[2024-03-02] MEDS ORDERED: KETOROLAC 30 MG/ML INJ ONE (16:26)
[2024-03-02] MEDS ORDERED: HYDROCODONE/APAP 10/325 TAB ONE (16:26)
--- NOTE | 2024-03-02 16:49 | RAD REPORT ---
EXAM DESCRIPTION: RAD - Tib Fib Left - 03/02/2024 4:43 pm CLINICAL HISTORY: SWELLING COMPARISON: No comparisons FINDINGS/IMPRESSION: No acute fracture. No malalignment. No significant focal degenerative changes.
[2024-03-02 23:56] VITALS: BP 134/76; TEMP 97.9; O2SAT 100
--- NOTE | 2024-03-04 12:46 | EKG ---
Test Date: 2024-03-02 Test Time: 14:41:18 Data Warehousing Engineer: PH MEASUREMENT RESULTS: Intervals: Rate: 53 GA: 196 QRSD: 86 QT: 388 QTc: 364 [place]: P: 32 GA: 196 QRS: -6 T: -25 INTERPRETIVE STATEMENTS: Sinus bradycardia Nonspecific T wave abnormality Abnormal ECG Compared to ECG 10/10/2023 10:44:32 Prolonged QT interval no longer present T-wave abnormality still present Electronically Signed On 03-04-24 12:41:35 CDT by Ryan Quintanilla
== END 2024-03-02 17:12 | disposition home or self-care (01) ==
LOC: ER 12:11
DX: S86.112A Strain of other muscle(s) and tendon(s) of posterior muscle group at lower leg level, left leg, initial encounter (principal); R29.91 Unspecified symptoms and signs involving the musculoskeletal system; Z88.3 Allergy status to other anti-infective agents
CPT/HCPCS: 93005; 85025; 80048; 36415; 83735; 85610; 80076; 84484; 83690; 83880; 71045; 73590; 93970; 96375; 96374; 99285; J2405; J7030